=== PATIENT | female | born 1995 | race African-American/Black ===

== ENCOUNTER 2022-08-11 16:58 | Emergency (ER) | payer SELFPAY ==
--- OUTSIDE RECORDS SUMMARY | 2022-08-11 17:01 | XMS REPORT | Continuity of Care Document ---
:1995 Author Organization [facility] t Address [address] [place] [address] [address] [place] [address] Care Team Providers Name Role Phone ARLYN HUFFMAN Primary Care Physician Unavailable Arlyn James Attending Clinician [phone] ARLYN HUFFMAN Attending Clinician Unavailable Doctor Unassigned, [place] Attending Clinician Unavailable RACHEL SMITH Attending Clinician Unavailable Racehl Regalado Attending Clinician Payers Payer Name Policy Type Policy Number Effective Date Expiration Date S ource Problems Condition Condition Condition Status Onset Resolution Last Treating Co mments Source Name Details Category Date Date Treatment Clinician Date Other Other Disease Active Univers general general 1-27 ity of counseling [place] and advice 00 Pr dical for [facility] contracept contracept julieta julieta management management Nexplanon Nexplanon Disease Active Uni vers in place in place 05 ity of 00:: [place] [facility] Nexplanon Nexplanon Disease Active Uni vers insertion insertion 1-05 ity of 00:: [place] [facility] Obesity Obesity Disease Active Univers (BMI (BMI 1-05 ity of 30-39.9) 30-39.9) 00:00: [place] [facility] Allergies, Adverse Reactions, Alerts Allergy Allergy Status Severity Reaction(s) Onset Inactive Treating Comm ents Source Name Type Date Date Clinician NO KNOWN Drug Active Univers ALLERGIE Class ity of S [facility] Social History Social Habit Start Date Stop Date Quantity Comments Source History SDOH University o f Alcohol Frequency [place] [facility] History SDOH University o f Alcohol Std [place] [facility] History SDOH University o f Alcohol Binge [place] [facility] Exposure to 2022-02-23 2022-03-05 Not sure University of SARS-CoV-2 00:00:00 08:27:00 [facility] (event) Branch Tobacco use and 2022-03-05 2022-03-05 Smokeless tobacco Un iversity of exposure 00:00:00 00:00:00 non-user [facility] Alcohol intake 2022-03-05 2022-03-05 Current drinker Unive rsity of 00:00:00 00:00:00 of alcohol [facility] (finding) [place] Alcohol Comment 2021-02-11 2021-02-11 social Universit y of 00:00:00 00:00:00 [facility] History of 2020-12-30 Cigarette Smoker Universi ty of tobacco use 00:00:00 [facility] Sex Ass[birth year] At [birth year] Universit y of 00:00:00 00:00:00 [facility] Smoking Status Start Date Stop Date Source Ex-smoker 2022-03-05 00:00:00 2022-03-05 00:00:00 Universi ty of [facility] Medications Ordered Filled Start Stop Current Ordering Indication Dosage Frequency Signature Comments Components Source Medication Medication Date Date Medication? Clinician (SIG) Name Name metroNIDAZO Yes [id number] 500mg Take 1 Univers LE 500 mg 2-07 tablet by ity o f tablet 00:00: mouth in [place] 00 the Medical morning Branch and 1 tablet in the evening. metroNIDAZO Yes [id number] 500mg Take 1 Univers LE 500 mg 2-07 tablet by ity o f tablet 00:00: mouth in [place] 00 the Medical morning Branch and 1 tablet in the evening. doxycycline 2022- No [id number] 100mg Take 1 Univers hyclate 100 1-31 02-08 tablet by it y of mg tablet 00:00: 05:59 mouth in [place] 00 :00 the Medical morning Branch and 1 tablet in the evening. Do all this for 7 days. doxycycline 2022- No [id number] 100mg Take 1 Univers hyclate 100 03-09 tablet by it y of mg tablet 00:00: 05:59 mouth in [place] 00 :00 the Medical morning Branch and 1 tablet in the evening. Do all this for 7 days. doxycycline 2022- No [id number] 100mg Take 1 Univers hyclate 100 03-09 tablet by it y of mg tablet 00:00: 05:59 mouth in [place] 00 :00 the [facility] and 1 tablet in the evening. Do all this for 7 days. doxycycline 2022- No [id number] 100mg Take 1 Univers hyclate 100 03-09 tablet by it y of mg tablet 00:00: 05:59 mouth in [place] 00 :00 the [facility] Branch and 1 tablet in the evening. Do all this for 7 days. No known No No known Unive rs medications 03-05 medication it y of 08:38: s [address] No known No No known Unive rs medications 03-05 medication it y of 08:38: [address] No known No No known Unive rs medications 03-05 medication it y of 08:38: [address] No known No No known Unive rs medications 03-05 medication it y of 08:38: [address] etonogestre 2021- No [id number] 68mg Univers L 02-25 ity of (NEXPLANON) 17:00: 15:57 [place] implant 68 00 :00 [facility] etonogestre 2021- No [id number] 68mg 68 mg, Univers L 02-25 Subdermal, ity of (NEXPLANON) 17:00: 15:57 ONCE NOW, [place] implant 68 00 :00 1 dose, On Med ical mg [facility] Branch 02/25/21 at 1100, Routine
Use approved by: [employer] No known No Univers medications 02-25 ity of 09:48: [address] No known No No known Unive rs medications 02-25 medication it y of 09:48: s [address] Vital Signs Vital Name Observation Time Observation Value Comments Source Systolic blood 2022-03-05 14:28:00 115 mm[Hg] Univer sity of pressure [facility] Diastolic blood 2022-03-05 14:28:00 67 mm[Hg] Unive rsity of pressure [facility] Heart rate 2022-03-05 14:28:00 91 /min Universi ty of [facility] Body temperature 2022-03-05 14:28:00 [facility].78 [facility] Res[facility] rate 2022-03-05 14:28:00 18 /min Univ ersity of [facility] Body height 2022-03-05 14:28:00 160 cm Universi ty of [facility] Body weight 2022-03-05 14:28:00 97.796 kg Universi ty of [facility] BMI 2022-03-05 14:28:00 38.19 kg/m2 Universi ty of [facility] Systolic blood 2021-02-25 15:31:00 128 mm[Hg] Univer sity of pressure [facility] Diastolic blood 2021-02-25 15:31:00 83 mm[Hg] Unive rsity of pressure [facility] Heart rate 2021-02-25 15:31:00 93 /min Universi ty of [facility] Body temperature 2021-02-25 15:31:00 35.83 [facility] Respiratory rate 2021-02-25 15:31:00 16 /min [facility] Body height 2021-02-25 15:31:00 160 cm Universi ty of [facility] Body weight 2021-02-25 15:31:00 88.168 kg Universi ty of [facility] BMI 2021-02-25 15:31:00 34.43 kg/m2 Universi ty [facility] Procedures Procedure Date / Time Performing Clinician Source Performed ASSIGNMENT OF BENEFITS 2022-03-05 13:53:48 Doctor Unassigned, No [facility] POCT TEST 2021-02-25 15:48:00 [facility] CONSENT FOR 2021-02-25 06:01:00 Doctor Unassigned, No [facility] Encounters Start End Encounter Admission Attending Care Care Encounter Source Date/Time Date/Time Type Type Clinicians Facility Department ID 2022-07-28 2022-07-28 Outpatient [facility] [id number] Fab 11:03:37 11:03:37 [id number] F Johnathan 2022-03-16 2022-03-16 [id number] Univers 00:00:00 00:00:00 Arlyn C [employer] [id number] ity of [facility] [id number] [place] as MATERNAL [id number] [facility] & CHILD [address] [place] [address] 2022-03-09 2022-03-09 [facility] [id number] [facility] 00:00:00 00:00:00 Arlyn C [employer] [id number] ity of [facility] [id number] [place] MATERNAL [id number] [facility] & CHILD [address] [place] [address] 2022-03-05 2022-03-05 [facility] [id number] Univers 08:15:00 10:32:29 ARLYN langley [facility] 2022-03-05 2022-03-05 [facility] [id number] Univers 08:15:00 08:30:00 Visit Arlyn Garber [employer] [id number] ity of [facility] [id number] [place] as MATERNAL [phone] [facility] & CHILD [address] [place] [address] 2022-03-05 2022-03-05 Orders Doctor TALBERT [id number] Univers 00:00:00 00:00:00 Only Unassigned, ABDOULAYE [id number] ity of [place] [facility] [id number] [place] as [phone] [address] 2022-02-11 2022-02-11 Outpatient Jannie SMITH [facility] [id number] Univers 10:30:00 10:30:00 RACHEL brantley o korin [facility] 2022-02-11 2022-02-11 Outpatient R BIBDALLIN [facility] [id number] Univers 10:30:00 10:30:00 ARLYN lakhani [facility] 2021-02-25 2021-02-25 Office Kodak [facility] [id number] Univers 15:00:00 15:30:00 Visit Rochellepepper R [employer] [id number] ity of [id number] [place] as MATERNAL [phone] [facility] & CHILD [address] [place] [address] 2021-02-25 2021-02-25 Outpatient R KODAK [facility] [id number] Univers 15:00:00 15:00:00 RACHEL lakhani [facility] 2021-02-25 2021-02-25 Outpatient R KODAK [facility] [id number] Univers 15:00:00 15:00:00 [facility] 2021-02-25 2021-02-25 Outpatient R KODAK [facility] [id number] Univers 15:00:00 15:00:00 [facility] l[facility] 2021-02-25 2021-02-25 Letter [employer] [facility] [id number] Univers 00:00:00 00:00:00 (Out) Rachel R [employer] [id number] ity of [id number] [place] as MATERNAL [id number] [facility] & [address] 2021-02-25 2021-02-25 Orders Doctor GALI [id number] Univers 00:00:00 00:00:00 Only Unassigned, ABDOULAYE [id number] ity of [place] [facility] [id number] [place] as [phone] [address] 2021-02-11 2021-02-11 Office [employer] [facility] [id number] Univers 09:00:00 10:20:05 Visit Anoopa R [employer] [id number] ity of [facility] [id number] [place] as MATERNAL [phone] Med ical & CHILD [address] [place] [address] 2021-02-11 2021-02-11 Outpatient Jannie SMITH [facility] [id number] Univers 09:00:00 10:20:05 RACHEL langley [facility] Results Test Description Test Time Test Comments Results Result Comments Source POCT TEST 2021-02-25 15:48:00 Test Item Value Reference Range Interpretation Comme nts POCT PREG (test code = 1605) Negative On board controls acceptable with C Line (test code = 3574) Yes POCT PREG LOT # (test code = 3575) POCT PREG TEST DATE (test code = 3576) [facility]
--- NOTE | 2022-08-11 17:20 | EDPHYS ---
Physician Documentation [facility] Name: Maxwell Villegas Age: 27 yrs Sex: Female : 1995 Arrival Date: 08/11/2022 Time: 16:58 Bed IW5 Private MD: ED Physician Sean Rivas HPI: 08/11 17:21 This 27 yrs old Black Female presents to ER via Ambulatory with complaints of Anxiety, sb4 Palpitations. 17:21 Onset: The symptoms/episode began/occurred 2 day(s) ago. Associated signs and symptoms: sb4 Pertinent negatives: chest pain, fever, headache, wheezing. The patient has not experienced similar symptoms in the past. The patient has not recently seen a physician. 27 year old female with no past medical history who presented to the ED with complaints of 2 days of panic attacks. She states that she does not have a formal diagnosis of depression or anxiety and has never had panic attacks in the past. She states that her job is stressful and believes that is the cause of her panic. She has noticed that her heart rate rises to the 150s during her attacks. Historical: - Allergies: 17:06 No Known Allergies; ld1 - PMHx: 17:06 None; ld1 - PSHx: 17:06 None; ld1 - Immunization history:: Adult Immunizations up to date. - Social history:: Smoking status: Patient denies any tobacco usage or history of. Patient/guardian denies using alcohol. ROS: 17:21 Constitutional: Negative for fever, chills, and weight loss, Eyes: Negative for injury, sb4 pain, redness, and discharge, ENT: Negative for injury, pain, and discharge, Respiratory: Negative for shortness of breath, cough, wheezing, and pleuritic chest pain, Abdomen/GI: Negative for abdominal pain, nausea, vomiting, diarrhea, and constipation, MS/Extremity: Negative for injury and deformity, Skin: Negative for injury, rash, and discoloration, Neuro: Negative for headache, weakness, numbness, tingling, and seizure. 17:21 Cardiovascular: Positive for palpitations, Negative for chest pain. 17:21 Psych: Positive for anxiety, Negative for depression, drug dependence, alcohol dependence, auditory hallucinations, visual hallucinations, homicidal ideation, insomnia, suicide gesture, suicidal ideation. Exam: 17:21 Constitutional: This is a well developed, well nourished patient who is awake, alert, sb4 and in no acute distress. Head/Face: Normocephalic, atraumatic. Eyes: Extra-ocular motions intact. Periorbital areas with no swelling, redness, or edema. ENT: Mucous membranes moist. Cardiovascular: Regular rate and rhythm with a normal S1 and S2. Respiratory: Lungs have equal breath sounds bilaterally, clear to auscultation and percussion. No rales, rhonchi or wheezes noted. No increased work of breathing, no retractions or nasal flaring. Abdomen/GI: Soft, non-tender, no distension. Back: No spinal tenderness. No costovertebral tenderness. Full range of motion. Skin: Warm, dry with normal turgor. Normal color with no rashes, no lesions, and no evidence of cellulitis. MS/ Extremity: Pulses equal, no cyanosis. Neurovascular intact. Full, normal range of motion. Neuro: Awake and alert, GCS 15, oriented to person, place, time, and situation. Cranial nerves II-XII grossly intact. Motor strength 5/5 in all extremities. Sensory grossly intact. Cerebellar exam normal. Normal gait. Psych: Awake, alert, with orientation to person, place and time. Behavior, mood, and affect are within normal limits. Vital Signs: 17:05 BP 137 / 87; Pulse 92; Resp 18; Temp 98.6(O); Pulse Ox 100% on R/A; Weight 85.73 kg; ld1 Height 5 ft. 4 in. ; Pain 0/10; 17:05 Body Mass Index 32.44 (85.73 kg, 162.56 cm) ld1 17:05 Pain Scale: Adult ld1 MDM: 17:04 Patient medically screened. sb4 17:21 Differential diagnosis: depression, anxiety, panic attacks, hyperthyroidism, sb4 drug/alcohol intoxication, schiophrenia. Data reviewed: vital signs, nurses notes, EKG, and as a result, I will discharge patient. Test considered but Not performed: Labs: discussed with patient obtaining labs to rule out an underlying cause- electrolyte abnormality, thyroid disorder, etc. but she declined at this time. Counseling: I had a detailed discussion with the patient and/or guardian regarding: the historical points, exam findings, and any diagnostic results supporting the discharge/admit diagnosis, the need for outpatient follow up, a psychiatrist. Special discussion: Based on the history and exam findings, there is no indication for further emergent testing or inpatient evaluation. I discussed with the patient/guardian the need to see the psychiatrist for further evaluation of the symptoms. 08/11 17:13 Order name: EKG Strip; Complete Time: 17:13 ld1 EC:27 Rate is 84 beats/min. Rhythm is regular, Normal Sinus Rhythm. QRS Dexter is Normal. DC sb4 interval is normal at 152 msec. QRS interval is normal at 76 msec. QT interval is normal at 324 msec. No Q waves. T waves are Normal. Clinical impression: Normal ECG. Interpreted by me. Reviewed by me. Administered Medications: No medications were administered Disposition: 18:51 Co-signature as Attending Physician, Sean Rivas MD I reviewed the patient's care rn provided by the Advanced Practice Provider and agree with the diagnosis and treatment plan. Disposition Summary: 08/11/22 17:19 Discharge Ordered Location: Home sb4 Problem: new sb4 Symptoms: are unchanged sb4 Condition: Stable sb4 Diagnosis - panic attacks sb4 Followup: sb4 - With: Saman Barlow MD - When: 1 week - Reason: Recheck today's complaints, Re-evaluation by your physician Discharge Instructions: - Discharge Summary Sheet sb4 - Panic Attack, [id number] sb4 Forms: - Work release form ld1 - Medication Reconciliation Form sb4 - Thank You Letter sb4 - Antibiotic Education sb4 - Prescription Opioid Use sb4 - [email or web address] sb4 Prescriptions: - Hydroxyzine HCl 25 mg Oral Tablet - take 1 tablet by ORAL route every 6 hours As needed; 12 tablet; Refills: 0, sb4 Product Selection Permitted Signatures: Sean Rivas MD MD rn Sims, Lauren, RN RN ld1 Alissa Aguirre PA-C PA-C sb4
--- NOTE | 2022-08-11 17:20 | ER ---
Nurse's Notes [facility] Name: Maxwell Villegas Age: 27 yrs Sex: Female : 1995 Arrival Date: 08/11/2022 Time: 16:58 Bed IW5 Private MD: Diagnosis: panic attacks Presentation: 08/11 17:06 Chief complaint: Patient states: Rapid heart rate, dizziness, drowsiness. Recent panic ld1 attacks - heart rate gets up to 150. Coronavirus screen: At this time, the client does not indicate any symptoms associated with coronavirus-19. Ebola Screen: No symptoms or risks identified at this time. Initial Sepsis Screen: Does the patient meet any 2 criteria? No. Patient's initial sepsis screen is negative. Does the patient have a suspected source of infection? No. Patient's initial sepsis screen is negative. Risk Assessment: Do you want to hurt yourself or someone else? Patient reports no desire to harm self or others. Onset of symptoms was August 11, 2022. 17:06 Method Of Arrival: Ambulatory ld1 17:06 Acuity: BOLIVAR 3 ld1 Triage Assessment: 17:06 General: Appears in no apparent distress. comfortable, Behavior is calm, cooperative, ld1 appropriate for age. Pain: Denies pain. EENT: No signs and/or symptoms were reported regarding the EENT system. Neuro: Level of Consciousness is awake, alert, obeys commands, Oriented to person, place, time, situation. Cardiovascular: Denies chest pain, Capillary refill < 3 seconds Patient's skin is warm and dry. Respiratory: Airway is patent Respiratory effort is even, unlabored. GI: Abdomen is round non-distended. : No signs and/or symptoms were reported regarding the genitourinary system. Derm: No signs and/or symptoms reported regarding the dermatologic system. Musculoskeletal: No signs and/or symptoms reported regarding the musculoskeletal system. Historical: - Allergies: 17:06 No Known Allergies; ld1 - PMHx: 17:06 None; ld1 - PSHx: 17:06 None; ld1 - Immunization history:: Adult Immunizations up to date. - Social history:: Smoking status: Patient denies any tobacco usage or history of. Patient/guardian denies using alcohol. Vital Signs: 17:05 BP 137 / 87; Pulse 92; Resp 18; Temp 98.6(O); Pulse Ox 100% on R/A; Weight 85.73 kg; ld1 Height 5 ft. 4 in. ; Pain 0/10; 17:05 Body Mass Index 32.44 (85.73 kg, 162.56 cm) ld1 17:05 Pain Scale: Adult ld1 ED Course: 17:01 Patient arrived in ED. rg4 17:04 Alissa Aguirre [facility]-C [facility] sb4 17:04 Sean Rivas MD is Attending Physician. sb4 17:06 Arm band placed on right wrist. ld1 17:07 Triage completed. ld1 17:18 Saman Barlow MD is Referral Physician. sb4 Administered Medications: No medications were administered Outcome: 17:19 Discharge ordered by . sb4 17:28 Patient left the ED. ld1 Signatures: Jennifer Mast rg4 Lizeth Epstein RN RN ld1 Alissa Aguirre PA-C PA-C sb4
[2022-08-11 18:11] VITALS: BP 137/87; TEMP 98.6; O2SAT 100
--- NOTE | 2022-08-12 12:14 | EKG ---
Test Date: 2022-08-11 Test Time: 17:11:23 Mechanical Estimator: Juhi NICOLAS MEASUREMENT RESULTS: Intervals: Rate: 84 VA: 152 QRSD: 76 QT: 324 QTc: 382 [place]: P: 60 VA: 152 QRS: 75 T: 28 INTERPRETIVE STATEMENTS: Normal sinus rhythm with sinus arrhythmia Normal ECG No previous ECG available for comparison Electronically Signed On 08-12-22 12:13:10 CDT by Abisai Rose
== END 2022-08-11 17:28 | disposition home or self-care (01) ==
LOC: ER 16:58
DX: F41.0 Panic disorder [episodic paroxysmal anxiety] (principal)
CPT/HCPCS: 93005; 99281

== ENCOUNTER 2023-02-04 12:50 | Inpatient (IN) | payer SELFPAY ==
--- OUTSIDE RECORDS SUMMARY | 2023-02-04 12:52 | XMS REPORT | Continuity of Care Document ---
Author Name Unknown Address [address] [place] [address] [facility] thconnect Address [address] [place] [address] Care Team Providers Care Hand Alterations Tailor Name Role Phone ARLYN HUFFMAN Primary Care Physician Unav ailANI Veloz Attending Clinician Unavailabl e Luis Arlyn NGUYEN Attending Clinician + ARLYN HUFFMAN Attending Clinician Unavail able Doctor Unassigned, [place] Attending Clinician U RACHEL Stanton Attending Clinician UnavailRachel Carter Attending Clinician Payers Payer Name Policy Type Policy Number Effective Date Expirati on Date Source Problems Condition Name Condition Details Condition Category Status Onset Date Resolution Date Last Treatment Date Treating Clinician Comments Source Other general counseling and advice for contracept julieta management Other general counseling and advice for contracept julieta management Disease Active 03-05 00:00: 00 [facility] Nexplanon in place Nexplanon in place Disease Active 02-11 00:00: 00 [facility] Nexplanon insertion Nexplanon insertion Disease Active 02-11 00:00: 00 [facility] Obesity (BMI 30-39.9) Obesity (BMI 30-39.9) Disease Active 02-11 00:00: 00 [facility] Allergies, Adverse Reactions, Alerts Allergy Name Allergy Type Status Severity Reaction(s) Onset Date Inactive Date Treating Clinician Comments Source NO KNOWN ALLERGIE S Drug Class Active [facility] Social History Social Habit Start Date Stop Date Quantity Comments Source History SDOH Alcohol Frequency [facility] History SDOH Alcohol Std Drinks [facility] History SDOH Alcohol Binge [facility] Exposure to SARS-CoV-2 (event) 2022-02-23 00:00:00 2022-03-05 08:27:00 Not sure [facility] Tobacco use and exposure 2022-03-05 00:00:00 2022-03-05 00:00:00 Smokeless tobacco non-user [facility] Alcohol intake 2022-03-05 00:00:00 2022-03-05 00:00:00 Current drinker of alcohol (finding) [facility] Alcohol Comment 2021-02-11 00:00:00 2021-02-11 00:00:00 social [facility] History of tobacco use 2020-12-30 00:00:00 Cigarette Smoker [facility] Sex Ass[birth year] At 1995 00:00:00 1995 00:00:00 [facility] Smoking Status Start Date Stop Date Source Ex-smoker 2022-03-05 00:00:00 2022-03-05 [facility]00[facility] Ordered Medication Name Filled Medication Name Start Date Stop Date Current Medication? Ordering Clinician Indication Dosage Frequency Signature (SIG) Comments Components Source metroNIDAZO LE 500 mg tablet 03-16 00:00: 00 Yes [id number] 500mg Take 1 tablet by mouth in the morning and 1 tablet in the evening. [facility] metroNIDAZO LE 500 mg tablet 03-16 00:00: 00 Yes [id number] 500mg Take 1 tablet by mouth in the morning and 1 tablet in the evening. [facility] doxycycline hyclate 100 mg tablet 03-09 00:00: 03-17 05:59 :00 No [id number] 100mg Take 1 tablet by mouth in the morning and 1 tablet in the evening. Do all this for 7 days. [facility] doxycycline hyclate 100 mg tablet 03-09 00:00: 00 03-17 05:59 :00 No [id number] 100mg Take 1 tablet by mouth in the morning and 1 tablet in the evening. Do all this for 7 days. [facility] doxycycline hyclate 100 mg tablet 03-09 00:00: 00 03-17 05:59 :00 No [id number] 100mg Take 1 tablet by mouth in the morning and 1 tablet in the evening. Do all this for 7 days. [facility] doxycycline hyclate 100 mg tablet 03-09 00:00: 00 03-17 05:59 :00 No [id number] 100mg Take 1 tablet by mouth in the morning and 1 tablet in the evening. Do all this for 7 days. [facility] No known medications 03-05 08:38: 58 No No known medication [facility] No known medications 03-05 08:38: 58 No No known medication [facility] No known medications 03-05 08:38: 58 No No known medication [facility] No known medications 03-05 08:38: 58 No No known medication [facility] etonogestre L (NEXPLANON) implant 68 mg 02-25 17:00: 00 02-25 15:57 :00 No [id number] 68mg [facility] etonogestre L (NEXPLANON) implant 68 mg 02-25 17:00: 00 02-25 15:57 :00 No [id number] 68mg 68 mg, Subdermal, ONCE NOW, 1 dose, On Tue02/25/21 at 1100, Routine
Use approved by: PRODUCT MARKETING ANALYST [facility] No known medications 02-25 09:48: 08 No Univers [facility] No known medications 02-25 09:48: 08 No No known medication s [facility] Vital Signs Vital Name Observation Time Observation Value Comments Servando patel Systolic blood pressure 2022-03-05 14:28:00 115 mm[Hg] [facility] Diastolic blood pressure 2022-03-05 14:28:00 67 mm[Hg] [facility] Heart rate 2022-03-05 14:28:00 91 /min [facility] Body temperature 2022-03-05 14:28:00 35.78 Vilma [facility] Respiratory rate 2022-03-05 14:28:00 18 /min [facility] Body height 2022-03-05 14:28:00 160 cm [facility] Body weight 2022-03-05 14:28:00 97.796 kg [facility] BMI 2022-03-05 14:28:00 38.19 kg/m2 [facility] Systolic blood pressure 2021-02-25 15:31:00 128 mm[Hg] [facility] Diastolic blood pressure 2021-02-25 15:31:00 83 mm[Hg] [facility] Heart rate 2021-02-25 15:31:00 93 /min [facility] Body temperature 2021-02-25 15:31:00 35.83 Vilma [facility] Respiratory rate 2021-02-25 15:31:00 16 /min [facility] Body height 2021-02-25 15:31:00 160 cm [facility] Body weight 2021-02-25 15:31:00 88.168 kg [facility] BMI 2021-02-25 15:31:00 34.43 kg/m2 [facility] Procedures Procedure Date / Time Performed Performing Clinician Source ASSIGNMENT OF BENEFITS 2022-03-05 13:53:48 Docto r Unassigned, [place] [facility] POCT TEST 2021-02-25 15:48:00 Jaden Smith [facility] CONSENT FOR CONTRACEPTION 2021-02-25 06:01:00 Doctor Unassigned, [place] [facility] Encounters Start Date/Time End Date/Time Encounter Type Admission Type Attending Clinicians Care Facility Care Department Encounter ID Source 2023-01-15 16:53:00 2023-01-15 22:40:00 Emergency E ANI XIE [facility] [id number] [facility] 2022-07-28 11:03:37 2022-07-28 11:03:37 Outpatient [facility] [id number] Fab Mann 2022-03-16 00:00:00 2022-03-16 00:00:00 Telephone Arlyn Huffman [facility] PRODUCT MARKETING ANALYST [facility] 1.840.114 [id number] [id number] [id number] [facility] 2022-03-09 00:00:00 2022-03-09 00:00:00 Telephone Arlyn Huffman [facility] PRODUCT MARKETING ANALYST [facility] 1.840.114 [id number] [id number] [id number] [facility] 2022-03-05 08:15:00 2022-03-05 10:32:29 Outpatient R ARLYN HUFFMAN [facility] [id number] [facility] 2022-03-05 08:15:00 2022-03-05 08:30:00 Office Visit Arlyn Huffman [facility] PRODUCT MARKETING ANALYST [facility] 1.840.114 [id number] [id number] [id number] [facility] 2022-03-05 00:00:00 2022-03-05 00:00:00 Orders Only Doctor Unassigned, [place] [facility] 1.840.114 [id number] [id number] [id number] [facility] 2022-02-11 10:30:00 2022-02-11 10:30:00 Outpatient R RACHEL SMITH [facility] [id number] [facility] 2022-02-11 10:30:00 2022-02-11 10:30:00 Outpatient R ARLYN HUFFMAN [facility] [id number] [facility] 2021-02-25 15:00:00 2021-02-25 15:30:00 Office Visit Rachel Smith [facility] PRODUCT MARKETING ANALYST [facility] 1.840.114 [id number] [id number] [id number] [facility] 2021-02-25 15:00:00 2021-02-25 15:00:00 Outpatient R RACHEL SMITH [facility] [id number] [facility] 2021-02-25 15:00:00 2021-02-25 15:00:00 Outpatient R RACHEL SMITH [facility] [id number] [facility] 2021-02-25 15:00:00 2021-02-25 15:00:00 Outpatient R RACHEL SMITH [facility] [id number] [facility] 2021-02-25 00:00:00 2021-02-25 00:00:00 Letter (Out) Rachel Smith [facility] PRODUCT MARKETING ANALYST [facility] 1..840.114 350.1.13.10 [id number] [id number] [facility] 2021-02-25 00:00:00 2021-02-25 00:00:00 Orders Only Doctor Unassigned, [place] [facility] 1..840.114 350.1.13.10 [id number] [id number] [facility] 2021-02-11 09:00:00 2021-02-11 10:20:05 Office Visit Rachel Smith [facility] PRODUCT MARKETING ANALYST [facility] [id number] [id number] [id number] [id number] [facility] 2021-02-11 09:00:00 2021-02-11 10:20:05 Outpatient R RACHEL SMITH [facility] [id number] [facility] Results Test Description Test Time Test Comments Results Result Co mments Source [facility]
[2023-02-04] MEDS ORDERED: ONDANSETRON 4 MG/2 ML VIAL ONE ×2 (13:27→20:43)
[2023-02-04] MEDS ORDERED: NA CHLORIDE 0.9% 2,000 ML ONE (13:27)
[2023-02-04] MEDS ORDERED: FAMOTIDINE 20 MG/2 ML VIAL IV ONE (13:27)
[2023-02-04 13:59] LABS: Absolute Lymphocytes (CBC) 2.2 K/uL (0.7-4.9); Hematocrit 27.3 % (36.0-45.0); Lymphocytes % 9.6 % (15.3-44.8); MCV 77.4 fL (80-100); MPV 6.2 fL (7.6-11.3); Platelets 159 thou/uL (152-406); RBC Red Blood Cell Count 3.53 M/uL (3.86-4.86)
[2023-02-04 14:23] LABS: Albumin 1.1 g/dL (3.4-5.0); Bilirubin Total 0.4 mg/dL (0.2-1.0); Protein, Total 6.1 g/dL (6.4-8.2)
[2023-02-04 14:24] LABS: Potassium 2.5 mEq/L (3.5-5.1)
[2023-02-04 15:34] LABS: Blood Morphology Comment NOTED (NOT SEEN); Platelet Estimate ADEQ; Polychromasia 1+; Stomatocytes 1+; White Blood Cell Scan OK (OK)
[2023-02-04] MEDS ORDERED: POTASSIUM 25 MEQ EFFERV TAB ONE (15:40)
[2023-02-04] MEDS ORDERED: VANCOMYCIN 1 GM/VIAL ONE (15:40)
[2023-02-04] MEDS ORDERED: CEFTRIAXONE 1000 MG/VIAL ONE (15:40)
[2023-02-04] MEDS ORDERED: KCL 20 MEQ/100 mL IVPB 100 ML IV ONE (15:41)
[2023-02-04] MEDS ORDERED: NA CHLORIDE 0.9% 250 ML ONE (15:41)
[2023-02-04] MEDS ORDERED: NA CHLORIDE 0.9% 1,000 ML ONE (15:41)
--- NOTE | 2023-02-04 17:53 | RAD REPORT ---
EXAM DESCRIPTION: CT - Abdomen Pelvis Wo Contrast - 02/04/2023 5:14 pm CLINICAL HISTORY: GLUTEAL ABSCESS/ RAYMUNDO-RECTAL; ABD PAIN COMPARISON: No comparisons TECHNIQUE: Thin cut axial CT imaging of the abdomen and pelvis was performed without IV contrast. Mu ltiplanar reformats were generated and reviewed. All CT scans are performed using dose optimization technique as appropriate and may include automated exposure control or mA/KV adjustment according to patient size. FINDINGS: No suspicious findings in the lung bases. The liver, spleen, and pancreas show no suspicious findings. Gallbladder and biliary tree are also wi thout suspicious finding. Symmetric renal contour, without suspicious parenchymal findings within limits of noncontrast techniq ue. No evidence of radiopaque calculi or hydroureteronephrosis. No dilated bowel loops. Diffuse wall thickening throughout the colon sparing, with mild adjacent fat stranding. No free air, free fluid or inflammatory stranding. No hernia, mass or bulky lymphadenopath y. The urinary bladder is without significant finding. No suspicious bony findings. Asymmetric soft tissue swelling in the right perianal region extending a long the right aspect of the right gluteal bulb, with locules of gas. No appreciable expansile fluid collections allowing for limits of absence of intravenous contrast benefit. IMPRESSION: Diffuse colonic wall thickening, sparing the rectum, suggestive of infectious or inflamm atory colitis. Asymmetric perianal soft tissue swelling on the right with extension of sequelae of inflammation with locules of soft tissue gas along the right gluteal region subcutaneous tissues, right concern for pe rianal fistula. No appreciable fluid collections within limits of noncontrast evaluation.
[2023-02-04 18:45] LABS: Specific Gravity 1.005 (1.005-1.030)
[2023-02-04 18:54] LABS: Specific Gravity 1.005 (1.005-1.030); Urine Bacteria <20 /HPF (<20); Urine Bilirubin NEGATIVE (Negative); Urine Blood 1+ (Negative); Urine Clarity Extremely Turbid (Clear); Urine Color Light-Yellow (Yellow); Urine Crystals Unidentified Few /HPF (None Seen); Urine Glucose NEGATIVE (Negative); Urine Mucus Slight /HPF (None Seen); Urine Protein NEGATIVE (Negative); Urine Urobilinogen Normal (Normal); Urine WBC Clump Rare /HPF (None Seen)
--- NOTE | 2023-02-04 20:00 | ER ---
[facility] Name: Maxwell Villegas Age: 27 yrs Sex: Female : 1995 Arrival Date: 02/04/2023 Time: 12:50 Bed 8 Private MD: Diagnosis: Rectal abscess;Anorectal abscess Presentation: 02/04 12:54 Chief complaint: Nausea with some vomiting and diarrhea x 2 weeks, painful bedsore on hb right buttock x 3 days. Coronavirus screen: Client presents with at least one sign or symptom that may indicate coronavirus-19. Standard/surgical mask placed on the client. Provider contacted for isolation considerations. Ebola Screen: No symptoms or risks identified at this time. Initial Sepsis Screen: Does the patient meet any 2 criteria? HR > 90 bpm. No. Patient's initial sepsis screen is negative. Does the patient have a suspected source of infection? No. Patient's initial sepsis screen is negative. Risk Assessment: Do you want to hurt yourself or someone else? Patient reports no desire to harm self or others. Onset of symptoms was January 11, 2023. 12:54 Method Of Arrival: Wheelchair hb 12:54 Acuity: BOLIVAR 2 hb Triage Assessment: 13:00 General: Appears uncomfortable, obese, unkempt, Behavior is cooperative, appropriate bp for age, anxious. Pain: Complains of pain in buttocks. GI: Reports RECTAL PAIN. Historical: - Allergies: 12:56 No Known Allergies; hb - Home Meds: 12:56 None [Active]; hb - PMHx: 12:56 None; hb - PSHx: 12:56 Hand - Left; hb - Immunization history:: Client reports having NOT received the Covid vaccine. Flu vaccine is not up to date. - Social history:: Smoking status: Patient denies any tobacco usage or history of. Screenin:00 [facility] ED Fall Risk Assessment (Adult) History of falling in the last 3 months, bp including since admission No falls in past 3 months (0 pts). Abuse screen: Denies threats or abuse. Denies injuries from another. Nutritional screening: No deficits noted. Tuberculosis screening: No symptoms or risk factors identified. Assessment: 13:00 General: SEE TRIAGE NOTE. bp 15:00 Reassessment: No changes from previously documented assessment. Patient is alert, bp oriented x 3, equal unlabored respirations, skin warm/dry/pink. 17:00 Reassessment: No changes from previously documented assessment. Patient is alert, bp oriented x 3, equal unlabored respirations, skin warm/dry/pink. 18:38 Reassessment: PT INCONTINENT TO STOOL AND URINE IN BED. LMP NOTIFIED AND LINENS CHANGED.bp 19:30 Reassessment: DR VALDOVINOS AT B/S. bp 20:39 Reassessment: PT BECKY WITH OR. bp 20:39 GI: Abdomen is non-distended. bp Vital Signs: 12:54 BP 140 / 93; Pulse 140; Resp 16; Temp 98.5; Pulse Ox 100% on R/A; Weight 69.4 kg; hb Height 5 ft. 3 in. ; Pain 6/10; 18:38 BP 113 / 69; Pulse 118; Resp 20; Pulse Ox 99% ; bp 12:54 Body Mass Index 27.10 (69.40 kg, 160.02 cm) hb 12:54 Pain Scale: Adult hb ED Course: 12:51 Patient arrived in ED. rg4 12:51 Jesus Hurley MD is Attending Physician. kdr 12:56 Triage completed. hb 12:57 Arm band placed on. hb 13:17 Poli Lomas, [place] is Primary Nurse. bp 13:51 Initial lab(s) drawn, by me, sent to lab. Inserted saline lock: 22 gauge in right em1 wrist, using aseptic technique. Blood collected. 14:00 Patient has correct armband on for positive identification. Provided Education on: N/A. bp 14:23 Notified ED physician of a critical lab result(s). Notified Dr Hurley that potassium me1 level is 2.5. 15:32 Inserted saline lock: 20 gauge in right antecubital area, using aseptic technique. bp 19:28 Urine Culture Sent. jw7 19:29 Urine Culture Sent. jw7 19:59 Reed Valdovinos MD is Hospitalizing Provider. kdr 20:39 No provider procedures requiring assistance completed. Patient admitted, IV remains in bp place. Administered Medications: 14:01 Drug: Ondansetron IVP 4 mg IVP once; over 2 minutes Route: IVP; Site: right hand; bp 14:01 Drug: NS 0.9% IV 1000 ml IV at 1 bolus Per protocol; 1000 mL bolus Route: IV; Rate: 1 bp bolus; Site: right hand; 14:02 Drug: NS 0.9% IV 1000 ml IV at 125 ml/hr continuous Route: IV; Rate: 125 ml/hr; Site: bp right hand; 14:02 Drug: Famotidine IVP 20 mg IVP once; dilute with 10 mL 0.9% NaCl; give over 2 minutes bp Route: IVP; Site: right hand; 15:30 Drug: Potassium PO Effervescent Tablet 50 mEq PO once; dissolve in 4 ounces of water or bp juice Route: PO; 20:41 Follow up: Response: No adverse reaction bp 15:30 Drug: Potassium Chloride IV 10 mEq IV at calculated rate once; administer over 1-2 bp hours Route: IV; Rate: calculated rate; Site: right antecubital; 20:41 Follow up: IV Status: Completed infusion; IV Intake: 100ml bp 15:30 Drug: NS 0.9% IV 1000 ml IV at 1 bolus Per protocol; 1000 mL bolus Route: IV; Rate: 1 bp bolus; Site: right antecubital; 20:40 Follow up: IV Status: Completed infusion; IV Intake: 1000ml bp 15:30 Drug: Rocephin - Rocephin (cefTRIAXone) IVPB 1 grams IVPB once over 30 mins; (mix in 50 bp mL NS) Route: IVPB; Infused Over: 30 mins; Site: right antecubital; 20:40 Follow up: IV Status: Completed infusion; IV Intake: 100ml bp 15:30 Drug: vancoMYCIN IVPB 1 grams IVPB once over 2 hrs Route: IVPB; Infused Over: 2 hrs; bp Site: right antecubital; 20:40 Follow up: IV Status: Completed infusion; IV Intake: 250ml bp Medication: 20:39 VIS not applicable for this client. bp Intake: 20:40 IV: 250ml; Total: 250ml. bp 20:40 IV: 100ml; Total: 350ml. bp 20:40 IV: 1000ml; Total: 1350ml. bp 20:41 IV: 100ml; Total: 1450ml. bp Outcome: 20:00 Decision to Hospitalize by Provider. kdr 20:40 Admitted to OR accompanied by nurse, via stretcher, bp 20:40 Condition: stable 20:40 Instructed on the need for admit, 20:41 Patient left the ED. bp Signatures: Jesus Hurley MD MD kdr Micheal Luke em1 Tori Rapp, RN RN Jennifer Mast rg4 Poli Lomas, [place] RN bp Bárbara Crump, RN RN [facility] Linda Barron, RN RN me1 Corrections: (The following items were deleted from the chart) 19:59 19:28 Test, Urine+UC.LAB.BRZ drawn and sent. [facility] EDMS 19:59 19:28 Urinalysis+U.LAB.BRZ drawn and sent. [facility] EDMS 20:00 19:28 CBC+H.LAB.BRZ drawn and sent. [facility] EDMS 20: 19:28 PROBNP+C.LAB.BRZ drawn and sent. [facility] EDMS 20: 19:28 COMPREHENSIVE METABOLIC PANEL+C.LAB.BRZ drawn and sent. [facility] EDMS 20: 19:28 LIPASE+C.LAB.BRZ drawn and sent. [facility] EDMS 20:02 19:28 LACTATE+C.LAB.BRZ drawn and sent. [facility] EDMS
--- NOTE | 2023-02-04 20:00 | EDPHYS ---
Physician Documentation [facility] Name: Maxwell Villegas Age: 27 yrs Sex: Female : 1995 Arrival Date: 02/04/2023 Time: 12:50 Bed 8 Private MD: ED Physician Jesus Hurley HPI: 02/04 19:08 This 27 yrs old Black Female presents to ER via Wheelchair with complaints of Rectal kdr Abscess, Vomiting, Urinary Problem. 19:09 The patient presents with nausea vomiting and diarrhea for 2 weeks. She states that she kdr has been feeling poorly overall but the last 3 days she has had rectal pain as well. She describes the discomfort as the "bedsore". The patient is nontoxic-appearing on initial presentation. Onset: The symptoms/episode began/occurred gradually, 2 week(s) ago. Severity of symptoms: At their worst the symptoms were mild moderate just prior to arrival, in the emergency department the symptoms are unchanged. The patient has not experienced similar symptoms in the past. The patient has not recently seen a physician. Historical: - Allergies: 12:56 No Known Allergies; hb - Home Meds: 12:56 None [Active]; hb - PMHx: 12:56 None; hb - PSHx: 12:56 Hand - Left; hb - Immunization history:: Client reports having NOT received the Covid vaccine. Flu vaccine is not up to date. - Social history:: Smoking status: Patient denies any tobacco usage or history of. ROS: 19:09 Constitutional: Negative for fever, chills, and weight loss, Eyes: Negative for injury, kdr pain, redness, and discharge, ENT: Negative for injury, pain, and discharge, Neck: Negative for injury, pain, and swelling, Cardiovascular: Negative for chest pain, palpitations, and edema, Respiratory: Negative for shortness of breath, cough, wheezing, and pleuritic chest pain, Back: Negative for injury and pain, : Negative for injury, bleeding, discharge, and swelling, MS/Extremity: Negative for injury and deformity, Skin: Negative for injury, rash, and discoloration, Neuro: Negative for headache, weakness, numbness, tingling, and seizure activity. Psych: Negative for depression, anxiety, suicide ideation, homicidal ideation, and hallucinations, Allergy/Immunology: Negative for hives, rash, and allergies, Endocrine: Negative for neck swelling, polydipsia, polyuria, polyphagia, and marked weight changes, Hematologic/Lymphatic: Negative for swollen nodes, abnormal bleeding, and unusual bruising, 19:09 Abdomen/GI: Positive for nausea, vomiting, and diarrhea, rectal pain, Negative for constipation, abdominal distension, anorexia, dysphagia, hematemesis, black/tarry stool, rectal bleeding, bowel incontinence, Exam: 19:09 Constitutional: This is a well developed, well nourished patient who is awake, alert, kdr and in no acute distress. Head/Face: Normocephalic, atraumatic. Eyes: Pupils equal round and reactive to light, extra-ocular motions intact. Lids and lashes normal. Conjunctiva and sclera are non-icteric and not injected. Cornea within normal limits. Periorbital areas with no swelling, redness, or edema. Neck: Trachea midline, no thyromegaly or masses palpated, and no cervical lymphadenopathy. Supple, full range of motion without nuchal rigidity, or vertebral point tenderness. No Meningismus. Chest/axilla: Normal chest wall appearance and motion. Nontender with no deformity. No lesions are appreciated. Cardiovascular: Regular rate and rhythm with a normal S1 and S2. No gallops, murmurs, or rubs. Normal PMI, no JVD. No pulse deficits. Respiratory: Lungs have equal breath sounds bilaterally, clear to auscultation and percussion. No rales, rhonchi or wheezes noted. No increased work of breathing, no retractions or nasal flaring. Abdomen/GI: Soft, non-tender, with normal bowel sounds. No distension or tympany. No guarding or rebound. No evidence of tenderness throughout. Back: No spinal tenderness. No costovertebral tenderness. Full range of motion. Skin: Warm, dry with normal turgor. Normal color with no rashes, no lesions, and no evidence of cellulitis. MS/ Extremity: Pulses equal, no cyanosis. Neurovascular intact. Full, normal range of motion. Neuro: Awake and alert, GCS 15, oriented to person, place, time, and situation. Cranial nerves II-XII grossly intact. Motor strength 5/5 in all extremities. Sensory grossly intact. Cerebellar exam normal. Normal gait. Psych: Awake, alert, with orientation to person, place and time. Behavior, mood, and affect are within normal limits. 19:09 Abdomen/GI: Inspection: abdomen appears normal, obese Bowel sounds: active, Palpation: soft, nontender, Rectal exam: tenderness, that is moderate, that is severe, Patient is very tender to palpation along the right gluteal fold medially., Vital Signs: 12:54 BP 140 / 93; Pulse 140; Resp 16; Temp 98.5; Pulse Ox 100% on R/A; Weight 69.4 kg; hb Height 5 ft. 3 in. ; Pain 6/10; 18:38 BP 113 / 69; Pulse 118; Resp 20; Pulse Ox 99% ; bp 12:54 Body Mass Index 27.10 (69.40 kg, 160.02 cm) hb 12:54 Pain Scale: Adult hb MDM: 19:09 Data reviewed: vital signs, nurses notes, lab test result(s), radiologic studies. ED kdr course: I presented the case to Dr. Ro for consult. He agreed to see the patient in the emergency department.. 20:00 Patient medically screened. kdr 02/04 12:54 Order name: Urine Culture [facility] 02/04 14:06 Order name: CBC with Automated Diff; Complete Time: 17:46 [facility] 02/04 14:25 Order name: Comprehensive Metabolic Panel; Complete Time: 17:46 [facility] 02/04 14:25 Order name: Lipase; Complete Time: 17:46 [facility] 02/04 15:35 Order name: CBC Smear Scan; Complete Time: 17:46 [facility] 02/04 16:11 Order name: Lactate w/ 2H reflex if indic.; Complete Time: 16:17 [facility] 02/04 16:24 Order name: NT PRO-BNP; Complete Time: 16:30 [facility] 02/04 18:45 Order name: Test, Urine [facility] 02/04 18:54 Order name: Urinalysis w/ reflexes [facility] 02/04 19:27 Order name: Urine Culture [facility] 02/04 20:07 Order name: Basic Metabolic Panel [facility] 02/04 20:07 Order name: Basic Metabolic Panel [facility] 02/04 20:07 Order name: CBC with Automated Diff [facility] 02/04 20:07 Order name: CBC with Automated Diff [facility] 02/04 20:07 Order name: Lipase [facility] 02/04 20:07 Order name: Lipase [facility] 02/04 20:07 Order name: Liver (Hepatic) Function [facility] 02/04 20:07 Order name: Liver (Hepatic) Function [facility] 02/04 20:22 Order name: Potassium [facility] 02/04 14:26 Order name: CT Abd/Pelvis - Without Contrast [facility] 02/04 17:54 Order name: CT; Complete Time: 17:56 [facility] 02/04 12:54 Order name: IV Saline Lock; Complete Time: 13:50 kdr 02/04 12:54 Order name: Labs collected and sent; Complete Time: 13:50 kdr 02/04 17:59 Order name: VS Recheck; Complete Time: 18:41 kdr Administered Medications: 14:01 Drug: Ondansetron IVP 4 mg IVP once; over 2 minutes Route: IVP; Site: right hand; bp 14:01 Drug: NS 0.9% IV 1000 ml IV at 1 bolus Per protocol; 1000 mL bolus Route: IV; Rate: 1 bp bolus; Site: right hand; 14:02 Drug: NS 0.9% IV 1000 ml IV at 125 ml/hr continuous Route: IV; Rate: 125 ml/hr; Site: bp right hand; 14:02 Drug: Famotidine IVP 20 mg IVP once; dilute with 10 mL 0.9% NaCl; give over 2 minutes bp Route: IVP; Site: right hand; 15:30 Drug: Potassium PO Effervescent Tablet 50 mEq PO once; dissolve in 4 ounces of water or bp juice Route: PO; 20:41 Follow up: Response: No adverse reaction bp 15:30 Drug: Potassium Chloride IV 10 mEq IV at calculated rate once; administer over 1-2 bp hours Route: IV; Rate: calculated rate; Site: right antecubital; 20:41 Follow up: IV Status: Completed infusion; IV Intake: 100ml bp 15:30 Drug: NS 0.9% IV 1000 ml IV at 1 bolus Per protocol; 1000 mL bolus Route: IV; Rate: 1 bp bolus; Site: right antecubital; 20:40 Follow up: IV Status: Completed infusion; IV Intake: 1000ml bp 15:30 Drug: Rocephin - Rocephin (cefTRIAXone) IVPB 1 grams IVPB once over 30 mins; (mix in 50 bp mL NS) Route: IVPB; Infused Over: 30 mins; Site: right antecubital; 20:40 Follow up: IV Status: Completed infusion; IV Intake: 100ml bp 15:30 Drug: vancoMYCIN IVPB 1 grams IVPB once over 2 hrs Route: IVPB; Infused Over: 2 hrs; bp Site: right antecubital; 20:40 Follow up: IV Status: Completed infusion; IV Intake: 250ml bp Disposition Summary: 02/04/23 20:00 Hospitalization Ordered Notes: Hospitalization Status: Inpatient Admission kdr Provider: Reed Ro Location: Telemetry/MedSurg (Inpatient) kdr Condition: Fair kdr Problem: new kdr Symptoms: have improved kdr Bed/Room Type: Standard kdr Room Assignment: 220(02/04/23 20:24) cg Diagnosis - Rectal abscess kdr - Anorectal abscess kdr Forms: - Medication Reconciliation Form kdr - SBAR form kdr - Leadership Thank You Letter kdr Signatures: Dispatcher [employer] EDMS Jesus Hurley MD MD kdr Kamilah Mast RN RN cg Tori Rapp RN RN Poli Lomas RN RN bp Corrections: (The following items were deleted from the chart) 19:59 19:09 Test, Urine+UC.LAB.BRZ ordered. EDMS EDMS 19:59 19:09 Urinalysis+U.LAB.BRZ ordered. EDMS EDMS 20:00 19:09 CBC+H.LAB.BRZ ordered. EDMS EDMS 20:01 19:09 COMPREHENSIVE METABOLIC PANEL+C.LAB.BRZ ordered. EDMS EDMS 20:01 19:09 LIPASE+C.LAB.BRZ ordered. EDMS EDMS 20:01 19:12 PROBNP+C.LAB.BRZ ordered. EDMS EDMS 20:02 19:11 LACTATE+C.LAB.BRZ ordered. EDMS EDMS 20:24 20:00 kdr cg
[2023-02-04] MEDS: Ringers Lactate 1,000 ML IV ONE ×2 (20:33→20:58)
--- NOTE | 2023-02-04 20:36 | P.HP ---
Date of Service: 02/04/23 PC: This 27-year-old female presented to the emergency room with severe perirectal pain for diagnosis and treatment HPC: Patient has apparently been unwell since just after Thanksgiving. Has not felt good and has been in bed quite a lot over the last few weeks. She has has been having some diarrhea. Started noticing some drainage that was consistent with dishwater and with increasing pain and nausea she presented to the emergency room. PSHx: No prior histories PMHx: Denies any hypertension, diabetes, or thyroid issues Social Hx: No known allergies Sys R: No cough, wheeze, or shortness of breath. Denies any chest pain. No urinary complaints O/E: Awake alert vital signs are stable at the moment appears relatively c omfortable HEENT: Not jaundiced Chest: Air entry equal bilaterally Abd: Negative [place]: Patient is strongly favoring her left side, cannot lay flat on the exam table. Data: Elevated white cell count, elevated lactate, CT scan demonstrates perirectal abscess with air Impression: Perirectal abscess, possible fasciitis Plan: I will take to the operating room for incision, drainage, sharp debrid ement of the perirectal area. The risks of this procedure have been discussed. The possibility of bleeding, infection, recurrence were explained. Need for further surgeries and procedures were outlined. The fact that she will most likely be left with a scar, asymmetry, and the long-term possibility of a recurrence from this or a new site were explained. She understands and wishes to proceed.
[2023-02-04] MEDS ORDERED: MIDAZOLAM HCL 2 MG/2 ML INJ ONE (20:42)
[2023-02-04] MEDS ORDERED: FENTANYL CITR 100 MCG/2 ML ONE ×2 (20:42→21:34)
[2023-02-04] MEDS ORDERED: propofoL 200 MG/20 ML VIAL IV ONE (20:42)
[2023-02-04] MEDS ORDERED: LIDOCAINE 2% MPF 5 ML VIAL ONE (20:42)
[2023-02-04] MEDS: D5 0.45 NS 1,000 ML IV SCH ×2 (21:00→23:25)
--- NOTE | 2023-02-04 22:09 | P.OP ---
Preoperative diagnosis: Perirectal abscess Postoperative diagnosis: Perirectal abscess with fasciitis Primary procedure: Debridement of abscess Secondary procedure: Debridement of necrotic tissue Anesthesia: General Estimated blood loss: Less than 20 cc Specimen: Cultures taken no specimen sent Operative Technique: The patient brought the operating room and placed supine on the table. After the induction of adequate general endotracheal anesthesia, the area of the perineum was prepped with a Betadine solution, she was draped in the usual aseptic manner. On initial inspection of the perineal area we could see on the right side there was a necrotic area at approximately the 8 o'clock position from the anus. This consisted of necrotic open wound measuring approximately 2.5 cm x 1.5 cm. This was through the full-thickness of the skin. There was brownish she dishwater drainage coming from this. At this point attention was turned towards the anus itself. We could see on digital exam but there was an area of induration on the right side of the anal canal just above the dentate line. A anal speculum was placed. On visualize this area we could see that there is a chronic opening consistent with an opening for fistula in this area. Two 4 x 4's were held together with umbilical tape and this was used as a rectal tampon to prevent further contamination coming down into her wounds. The area of the fistula opening was coagulated with electrocautery. 2 scraggly pieces of hemorrhoidal tissue were also electrocautery in the area. Attention was now turned back tow ards our open wound. The edges were debrided with a cutting 11 surgical blade. We now using a surgical curette removed all the obviously infected and inflamed fatty tissue in the area. We were able to go superiorly to approximately the mid vaginal area anteriorly. Posteriorly were able to sweep our hand in this large abscess cavity posteriorly to well above the dentate line in the rectum. There did not appear to be any complete breakdown apart from the fistulotomy opening seen. This wound was now debrided of all necrotic material. A counterincision was made down on the right buttock. Through this we were able to pass a peon clamp. This allowed us to place a #1 Nida drain through this up into the depth of our cavity and out through the initial wound. In order to keep the wound open, it was packed with half-inch iodoform gauze. At this point are 4 x 4 rectal tampon was removed. The wound was partially closed to prevent gross contamination with just a loose suture of 0 chromic. Sterile dressings were then applied. At the end of the procedure the patient was in a stable condition was sent to the recovery room. Needle sponge instrument count were correct. A Nida dr zambrano was placed. Complications: None Drain(s): Other Transferred to: Recovery Room Condition: Good
[2023-02-04] MEDS ORDERED: MORPHINE 4 MG/ML SYR IV PRN (22:30)
[2023-02-04] MEDS: HYDROMORPHONE HCL 1 MG/ML INJ ONE ×2 (22:35→22:44)
[2023-02-04 23:17] VITALS: BMI 27.1
[2023-02-05] MEDS ORDERED: CLINDAMYCIN INJ 300 MG in NA CHLORIDE 0.9% 50 ML IV SCH ×2
[2023-02-05] MEDS ORDERED: CLINDAMYCIN 300MG D5W 300 MG/50 ML BAG IV SCH
[2023-02-05] MEDS ORDERED: CLINDAMYCIN INJ 600 MG in NA CHLORIDE 0.9% 50 ML IV SCH ×2
[2023-02-05] MEDS ORDERED: CLINDAMYCIN 600MG/D5W 50 ML IV SCH
[2023-02-05] MEDS: CLINDAMYCIN 600MG/D5W 50 ML IV SCH ×2 (00:07→13:00)
[2023-02-05] MEDS: PIPER TAZO 3.375 GM in NA CHLORIDE 0.9% 100 ML IV SCH ×3 (00:07→17:00)
[2023-02-05] MEDS: HYDROCODONE/APAP 10/325 TAB PO PRN ×2 (03:25→21:30)
[2023-02-05] MEDS: D5 0.45 NS 1,000 ML IV SCH ×3 (05:28→21:00)
[2023-02-05 06:52] LABS: Absolute Lymphocytes (CBC) 1.9 K/uL (0.7-4.9); Hematocrit 19.9 % (36.0-45.0); Lymphocytes % 11.7 % (15.3-44.8); MCV 77.7 fL (80-100); MPV 6.5 fL (7.6-11.3); Platelets 116 thou/uL (152-406); RBC Red Blood Cell Count 2.56 M/uL (3.86-4.86)
[2023-02-05 07:14] LABS: AST/SGOT 6 U/L (15-37); Alkaline Phosphatase 72 U/L (45-117); BUN Blood Urea Nitrogen 6 mg/dL (7-18); Bicarbonate 31 mEq/L (21-32); Bilirubin Total 0.2 mg/dL (0.2-1.0); Glomerular Filtration Rate 86 ml/min (=/>90); Glucose Level 145 mg/dL (74-106); Lipase 7 U/L (13-75); Potassium 2.9 mEq/L (3.5-5.1); Protein, Total 4.5 g/dL (6.4-8.2); Sodium Level 134 mEq/L (136-145)
[2023-02-05 07:15] LABS: ALT/SGPT < 10 U/L (13-56); Bilirubin Direct < 0.1 mg/dL (0-0.2); Bilirubin Indirect, Calculated ND mg/dL (0.2-0.8)
[2023-02-05 07:17] LABS: Albumin 0.8 g/dL (3.4-5.0)
[2023-02-05] MEDS ORDERED: VANCOMYCIN 1.25 GM in NA CHLORIDE 0.9% 250 ML IVPB SCH (09:00)
[2023-02-05] MEDS: VANCOMYCIN 1.25 GM in NA CHLORIDE 0.9% 250 ML IVPB SCH (11:01)
--- NOTE | 2023-02-05 13:11 | P.PN ---
Date of Service: 02/05/23 . S: Patient feels well today, says her pain is a lot better. Still having diarrhea. O: Patient awake alert vital signs are stable, not tachycardic. Her labs show white cell count has gone down, her hemoglobin is at 6.6. Her BUN and creatinine are stable. A: Patient appears to be much improved since having her abscess drained. On further questioning the patient is complained that she has been having diarrhea as mentioned since . Says that she had noticed a boil forming on her right buttock since last [5 days ago]. Was having a lot of pain and discomfort whenever she tried to walk or move. She had been constipated, and her mother had given her laxatives prior to her presentation to the hospital. P: Patient is improved since drainage of her original abscess. I will most likely take her back to the OR tomorrow to remove the packing, and we explored the wound to ensure we have all necrotic material out of the area that had fasciitis. In the meantime we will continue IV fluids, pain medicine, and her antibiotic regime.
[2023-02-06] MEDS: CLINDAMYCIN 600MG/D5W 50 ML IV SCH ×2 (00:30→12:46)
[2023-02-06] MEDS: PIPER TAZO 3.375 GM in NA CHLORIDE 0.9% 100 ML IV SCH ×3 (00:30→17:00)
[2023-02-06] MEDS: D5 0.45 NS 1,000 ML IV SCH ×4 (00:38→19:44)
[2023-02-06] MEDS: VANCOMYCIN 1.25 GM in NA CHLORIDE 0.9% 250 ML IVPB SCH ×2 (04:27→21:56)
[2023-02-06] MEDS: KCL 20 MEQ/100 mL IVPB 20 MEQ/100 ML BAG IV SCH ×2 (09:35→12:00)
[2023-02-06 10:37] LABS: Absolute Lymphocytes (CBC) 1.8 K/uL (0.7-4.9); Hematocrit 20.9 % (36.0-45.0); Lymphocytes % 11.1 % (15.3-44.8); MCV 76.5 fL (80-100); MPV 7.4 fL (7.6-11.3); Platelets 101 thou/uL (152-406); RBC Red Blood Cell Count 2.73 M/uL (3.86-4.86)
[2023-02-06 10:57] LABS: Potassium 2.9 mEq/L (3.5-5.1)
--- NOTE | 2023-02-06 15:13 | P.PN ---
Date of Service: 02/06/23 . S: Patient feels well today, says her pain is a lot better. Still having diarrhea. O: Patient awake alert vital signs are stable, not tachycardic. Her labs show white cell count has gone down, her hemoglobin is at 6.6. Her BUN and creatinine are stable. A: Patient appears to be much improved since having her abscess drained. On further questioning the patient is complained that she has been having diarrhea as mentioned since . Says that she had noticed a boil forming on her right buttock since last [5 days ago]. Was having a lot of pain and discomfort whenever she tried to walk or move. She had been constipated, and her mother had given her laxatives prior to her presentation to the hospital. S: Patient has no specific complaints today, says she feels pretty good. Able to pee on her own. She says she has not had any bowel movements today, [nurse says she has had 4 loose stools] O: Clinically the patient looks well, white cell count is coming down, electrolytes are starting to resolve. A: Clinically the patient looks well. Has remained afebrile. Her white cell count is responding. P: I have made her n.p.o., I will take her back to the operating room tomorrow instead of today. This will allow us to washout the wound 1 more time. She remains afebrile so I both do believe most of the necrotic material has been removed. At that time we will decide if we can start putting JODIE drains, partial closure, or with a neck step will be. I have explained this to the patient, she understands and wants to proceed.
[2023-02-07] MEDS: CLINDAMYCIN 600MG/D5W 50 ML IV SCH ×2 (01:00→12:13)
[2023-02-07] MEDS: PIPER TAZO 3.375 GM in NA CHLORIDE 0.9% 100 ML IV SCH ×2 (01:55→10:13)
[2023-02-07] MEDS: D5 0.45 NS 1,000 ML IV SCH ×3 (05:00→13:00)
[2023-02-07] MEDS: Mupirocin NASAL 2 APPL/1 GM TUBE NAS SCH ×2 (09:00→21:55)
[2023-02-07] MEDS: KCL 20 MEQ/100 mL IVPB 20 MEQ/100 ML BAG IV SCH ×2 (10:13→12:13)
[2023-02-07] MEDS ORDERED: BUPIVACAINE 0.25% PF 30 ML VIAL ONE (12:41)
[2023-02-07] MEDS ORDERED: Ringers Lactate 1,000 ML IV ONE (13:04)
[2023-02-07] MEDS ORDERED: FENTANYL CITR 100 MCG/2 ML ONE ×2 (13:14→13:45)
[2023-02-07] MEDS ORDERED: MIDAZOLAM HCL 2 MG/2 ML INJ ONE (13:14)
[2023-02-07] MEDS ORDERED: propofoL 200 MG/20 ML VIAL IV ONE (13:14)
--- NOTE | 2023-02-07 14:21 | P.OP ---
Primary procedure: Debridement of abscess cavity and necrotic tissue Secondary procedure: Approximation of wound Other procedure(s): Establishment of surgical drainage Anesthesia: General Estimated blood loss: Less than 10 cc Specimen: None sent Operative Technique: The patient brought the operating room and placed supine on the table. After the induction of adequate general endotracheal anesthesia, the area of the perineum was prepped with a Betadine solution, she was draped in the usual aseptic manner. The patient, in lithotomy, was then placed in Trendelenburg. We could visualize a full perineum. We could visualize a surgical wound that had been created from debridement and drainage of the abscess on her prior surgery. The skin edges are clean and viable. The cavity of the abscess had 1 small area of necrotic tissue that was sharply debrided using a cutting 11 surgical blade. The wound was now irrigated with a pulse lavage until the effluent was clear. A [place] drain having been removed, the tract was gently probed with a peon. We were able to place a #10 Leonides-Sauer drain into the wound and out through this area. Attention was turned towards the skin edges of this large abscess cavity that measured approximately 14 cm x 8 cm x 6 cm. The Nida was left in the depths of the wound. We were able to approximate the skin edges with interrupted sutures of chromic to loosely approximate them. Attention was turned towards the rectal cavity. Once again after placing our rectal retractor we could see the area superior to this pathology still showed some erythema and inflammation. The prior opening where the fistula had been appears to be closed. At this point the wound that it was closed with chromic was covered with triple antibiotic to help seal the wound and protect it when the patient has bowel movements. A dressing was then applied. At the end of the procedure she was in a stable condition was sent to the recovery room. Needle sponge instrument count were correct. [address] Minimal blood loss. Complications: None Drain(s): JODIE drain, Other Transferred to: Recovery Room Condition: Good
[2023-02-07] MEDS: FENTANYL CITR 100 MCG/2 ML ONE ×2 (14:50→14:54)
[2023-02-07] MEDS: NS KCL 20MEQ 20 MEQ/1,000 ML BAG IV SCH (15:00)
--- NOTE | 2023-02-07 15:20 | RAD REPORT ---
EXAM DESCRIPTION: RAD - Chest Single View - 02/07/2023 3:55 am CLINICAL HISTORY: The patient is 27 years old and is Female; post PICC insertion TECHNIQUE: Frontal view of the chest. COMPARISON: No relevant prior studies available. FINDINGS: Lungs: Hazy opacification of the right lung which may be due to overlying soft tissue or airspace disease. Pleural space: Unremarkable. No pneumothorax. Heart: Unremarkable. Mediastinum: Unremarkable. Normal mediastinal contour. Bones/joints: No acute findings. Tubes, lines and devices: Left PICC with tip in the SVC. IMPRESSION: Hazy opacification of the right lung which may be due to overlying soft tissue or airspa ce disease. Electronically signed by: Lionel Medeiros MD 02/07/2023 04:27 AM [employer] Due to temporary technical issues with the PACS/Fluency reporting system, reports are being signed by the in house radiologists without review as a courtesy to insure prompt reporting. The interpreting radiologist is fully responsible for the content of the report.
[2023-02-07] MEDS ORDERED: CEFTAZIDIME 1 GM VIAL IV SCH (17:00)
[2023-02-07] MEDS: CEFTAZIDIME 1 GM in NA CHLORIDE 0.9% 50 ML IV SCH (17:00)
[2023-02-07] MEDS ORDERED: POTASSIUM CL SA 10 MEQ TAB PO ONE (18:06)
[2023-02-08] MEDS: CEFTAZIDIME 1 GM in NA CHLORIDE 0.9% 50 ML IV SCH ×3 (02:21→17:55)
[2023-02-08] MEDS: Mupirocin NASAL 2 APPL/1 GM TUBE NAS SCH ×2 (09:00→20:55)
[2023-02-08] MEDS: NS KCL 20MEQ 20 MEQ/1,000 ML BAG IV SCH ×2 (11:00→22:00)
[2023-02-08] MEDS: HYDROCODONE/APAP 10/325 TAB PO PRN ×2 (11:55→19:54)
--- NOTE | 2023-02-08 14:28 | P.PN ---
Date of Service: 02/08/23 . S: Patient feels better today, a lot more comfortable than when she was and in very good spirits. Tolerating a diet. Says her heart rate goes up when she goe s to the restroom or exerts herself. Pain is controlled just on oral medication, no longer needs morphine. O: Vital signs are stable, is tachycardic. Clinically looks well. Abdomen is soft, JODIE drain intact. A: Surgically stable status post incision, drainage, and debridement of abscess with necrotizing fasciitis and perianal fistula P: Patient is on antibiotics, will try and get a check for C. difficile. I will seek a consult with the hospitalist, to help with medical management of this patient. Patient is happy with this plan.
[2023-02-08] MEDS ORDERED: ALTEPLASE 2 MG/VIAL IV SCH (16:00)
--- NOTE | 2023-02-08 16:09 | P.CNS ---
Date of Consult: 02/08/23 Reason for Consult: tachycardia/ medical management Requesting Physician: Reed Ro Chief Complaint: s/p perirectal abscess I&D, tachycardia History of Present Illness: 27yo F with no significant PMH per self-report presented to ED with diarrhea and rectal pain, found to have perirectal abscess and underwent surgical I&D by Dr. Ro and noted to have fasciitis. Post-operatively she has noted improvement of her diarrhea, but has been noted to have increasing tachycardia of unclear etiology. Upon further questioning and discussion, she stated she was diagnosed with gestational diabetes and anemia during her last ~4yrs ago. She has not taken any medication since her , stating she was never prescribed any medications to take. She does not regularly see a physician. On admission she was noted to be anemic and hgb dropped to 6.6 on day after admission, and rising to 7.2 the following day. She has been a hard-stick and has been reluctant to allow blood-draws. A PICC was placed but has not been func tioning well enough to pull blood. She reports some changes from brown diarrhea / dark black diarrhea / and occasional bloody stools in the few days leading up to admission. Discussed my concern she may be more anemic than the 6.6 she was a few days ago and likely needs blood, or at least IV iron, but we need to check labs before ordering any transfusions/iv infusions. Allergies No Known Allergies Allergy (Unverified 02/04/23 17:25) Home medications list reviewed: Yes Home Medications: NK [No Home Meds] 02/05/23 - Past Medical/Surgical History Diabetic: No -: gestational diabetes -: anemia -: left hand sx -: skin graft - Social History Smoking Status: Former smoker Alcohol use: No CD- Drugs: No Place of Residence: Home Review of Systems 10-point ROS is otherwise unremarkable Physical Examination Temp Pulse Resp BP Pulse Ox 97.8 F 126 H 20 135/70 99 02/08/23 12:00 02/08/23 12:00 02/08/23 12:00 02/08/23 12:02/08/23 12:00 General: Alert, In no apparent distress, Oriented x3 HEENT: EOMI, Sclerae nonicteric Neck: Supple, No LAD Respiratory: Clear to auscultation bilaterally, Normal air movement Cardiovascular: No edema, Irregular heart rate/rhythm (sinus tachycardia) Gastrointestinal: Soft and benign, Non-distended Musculoskeletal: No contractures, No tenderness Integumentary: No rashes, No significant lesion Neurological: Normal speech, Normal affect Physician Review Additional Text: Problem List Anemia, suspect iron deficiency, acute on chronic with blood loss component Tachycardia secondary to above perirectal abscess with fasciitis s/p I&D suspect tachycardia is secondary to anemia patient's hgb was 6.6 and 7.2 a few days ago hard stick and has been resistant to blood draws, PICC line has not been drawing back will troubleshoot PICC line discussed with patient will need to get blood draw to check H/H suspect hgb is lower and will need at least 1, if not 2 units of PRBCs check iron studies as well antibiotics and pain medication per general surgery for her jamal-rectal abscess Time Spent Managing Pts care (In Minutes): 35
[2023-02-08 16:43] LABS: Potassium 3.2 mEq/L (3.5-5.1)
[2023-02-08 16:47] LABS: Absolute Lymphocytes (CBC) 1.6 K/uL (0.7-4.9); Hematocrit 16.9 % (36.0-45.0); Lymphocytes % 18.1 % (15.3-44.8); MCV 77.8 fL (80-100); MPV 6.8 fL (7.6-11.3); Platelets 128 thou/uL (152-406); RBC Red Blood Cell Count 2.17 M/uL (3.86-4.86)
[2023-02-08] MEDS ORDERED: NA CHLORIDE 0.9% 250 ML IV SCH (18:00)
[2023-02-09] MEDS: CEFTAZIDIME 1 GM in NA CHLORIDE 0.9% 50 ML IV SCH ×3 (01:42→17:19)
[2023-02-09] MEDS: ACETAMINOPHEN 500 MG TAB PO PRN ×2 (03:31→12:30)
[2023-02-09] MEDS: NS KCL 20MEQ 20 MEQ/1,000 ML BAG IV SCH ×2 (06:10→07:56)
[2023-02-09] MEDS: Mupirocin NASAL 2 APPL/1 GM TUBE NAS SCH ×2 (07:55→20:13)
[2023-02-09 08:13] LABS: MCV 78.3 fL (80-100); MPV 6.4 fL (7.6-11.3); Platelets 138 thou/uL (152-406); RBC Red Blood Cell Count 2.04 M/uL (3.86-4.86)
[2023-02-09 08:33] LABS: Magnesium 1.4 mg/dL (1.6-2.4); Potassium 5.1 mEq/L (3.5-5.1)
--- NOTE | 2023-02-09 09:41 | P.PN ---
Date of Service: 02/09/23 Subjective: Remains tachycardic - episode of HR up to 170s after getting up overnight 120s-130s at rest Patients blood noted to be positive for antibodies - delaying transfusion; still undergoing further testing denies black / red stool. No obvious bleeding in last 2 days Feels very cold today afebrile ROS: 10 point ROS as noted above, otherwise negative Physical Exam: GEN: Alert, oriented, NAD HEENT: Normal conjunctiva, sclera anicteric, CV: Sinus tachycardia, no edema Pulm: Nonlabored respirations on room air, clear bilaterally ABD: soft, nontender, nondistended Integumentary: No rashes. Dressing in place Neuro: Normal speech, normal affect [address] Problem List: iron deficiency Anemia, acute on chronic with blood loss component Tachycardia secondary to above perirectal abscess with fasciitis s/p I&D (02/04) gestational diabetes Hypocalcemia tachycardia secondary to anemia patient's hgb was 6.6 and 7.2 a few days ago Patients blood noted to be positive for antibodies - delaying transfusion hgb 5.7 -> 5.3 (02/09) 2 uPRBC ordered - delayed secondary to blood availability f awaiting callback from blood bank moderate iron deficiency workup sent off for hemolytic cause Wound cx (02/04): Enterobacter Cloacae antibiotics and pain medication per general surgery for her jamal-rectal abscess Previously given clinda / zosyn / vanc (02/05-02/07) Currently on Ceftazidime (02/07-); recommend completing 7 day course Urine cx (02/04): Enterococcus Faecalis add augmentin 02/09 Code: Full Dispo: Home, 2-3 days
[2023-02-09] MEDS ORDERED: Magnesium Sulfate 2gm IVPB 2 G/50 ML BAG IV ONE (11:06)
[2023-02-09] MEDS: NA CHLORIDE 0.9% 1,000 ML IV SCH ×2 (12:04→22:00)
[2023-02-09] MEDS: AMOX/K CLAV 875 MG TAB PO SCH ×2 (15:41→20:14)
[2023-02-09 16:24] LABS: RBC Red Blood Cell Count 2.17 M/uL (3.86-4.86)
[2023-02-09] MEDS ORDERED: CEFTAZIDIME 1 GM VIAL ONE ×2 (17:17→23:39)
[2023-02-09] MEDS ORDERED: NA CHLORIDE 0.9% 100 ML ONE ×2 (17:18→23:40)
[2023-02-09] MEDS ORDERED: NA CHLORIDE 0.9% 50 ML ONE (17:20)
[2023-02-09] MEDS ORDERED: METHYLPREDNISOLONE 40 MG INJ IV PRN (17:25)
[2023-02-09] MEDS ORDERED: DIPHENHYDRAMINE 50 MG/ML VIAL IV PRN (17:31)
[2023-02-09] MEDS ORDERED: ALBUMIN HUMAN 25% 100 ML IV ONE ×2 (18:00→22:02)
[2023-02-09 18:24] LABS: Anisocytosis 1+; Blood Morphology Comment NOTED (NOT SEEN); Hypochromasia 1+; Platelet Estimate DECR; Poikilocytosis 1+; Polychromasia 1+; Teardrop Cell 1+
[2023-02-09] MEDS ORDERED: AMOX/K CLAV 875 MG TAB ONE (19:40)
[2023-02-09] MEDS ORDERED: NA CHLORIDE 0.9% 1,000 ML ONE (21:46)
[2023-02-10] MEDS: CEFTAZIDIME 1 GM in NA CHLORIDE 0.9% 50 ML IV SCH ×3 (00:19→16:09)
[2023-02-10 00:29] LABS: Hematocrit 19.7 % (36.0-45.0)
[2023-02-10] MEDS ORDERED: HYDROCODONE/APAP 10/325 TAB ONE ×5 (01:47→22:12)
[2023-02-10] MEDS: HYDROCODONE/APAP 10/325 TAB PO PRN ×5 (01:49→22:10)
[2023-02-10 04:53] LABS: Absolute Lymphocytes (CBC) 1.5 K/uL (0.7-4.9); Lymphocytes % 12.1 % (15.3-44.8); MCV 76.4 fL (80-100); MPV 6.5 fL (7.6-11.3); Platelets 153 thou/uL (152-406); RBC Red Blood Cell Count 2.74 M/uL (3.86-4.86)
[2023-02-10 05:12] LABS: Albumin 1.6 g/dL (3.4-5.0); Bilirubin Total 0.5 mg/dL (0.2-1.0); C-Reactive Protein 27.4 mg/L (<3.00); Magnesium 1.9 mg/dL (1.6-2.4); Phosphorus 3.7 mg/dL (2.5-4.9); Potassium 3.3 mEq/L (3.5-5.1); Protein, Total 5.2 g/dL (6.4-8.2)
[2023-02-10] MEDS: KCL 20 MEQ/100 mL IVPB 20 MEQ/100 ML BAG IV SCH ×2 (05:37→08:48)
[2023-02-10] MEDS ORDERED: KCL 20 MEQ/100 mL IVPB 100 ML IV ONE (05:37)
--- NOTE | 2023-02-10 07:19 | P.PN ---
Date of Service: 02/10/23 Subjective: transferred to ICU yesterday feels ~same as yesterday tolerated blood transfusion yesterday without issues HR improving, now in ~110s afebrile ROS: 10 point ROS as noted above, otherwise negative Physical Exam: GEN: Alert, oriented, NAD HEENT: Normal conjunctiva, sclera anicteric, CV: Sinus tachycardia, no edema Pulm: Nonlabored respirations on room air, clear bilaterally ABD: soft, nontender, nondistended Integumentary: No rashes. Dressing in place Neuro: Normal speech, normal affect [address] Problem List: iron deficiency Anemia, acute on chronic with blood loss component Tachycardia secondary to above perirectal abscess with fasciitis s/p I&D (02/04) UTI, Enterococcus Faecalis gestational diabetes Hypocalcemia iron deficiency Anemia, acute on chronic with blood loss component Tachycardia secondary to above tachycardia secondary to anemia patient's hgb was 6.6 and 7.2 a few days ago Patients blood noted to be positive for antibodies - delaying transfusion hgb down to 5.3 (1.3) - HR up to 130s-140s, up to 180s with movement, +dizzy, +cold Transferred to ICU 02/09 for emergent transfusion s/p 1 uPRBC (02/09) - tolerated without issues moderate iron deficiency hgb 6.5 -> 7.0 (02/10) Discussed with Dr. Mcleod, who reviewed labs electronically. Recommend goal hgb > 6.0 suspect acute blood loss anemia workup sent off for hemolytic cause LDH normal, retic% elevated no evidence of hemolysis Start IV iron Given albumin yesterday perirectal abscess with fasciitis s/p I&D (02/04) Wound cx (02/04): Enterobacter Cloacae antibiotics and pain medication per general surgery for her jamal-rectal abscess Previously given clinda / zosyn / vanc (02/05-02/07) Currently on Ceftazidime (02/07-); recommend completing 7 day course UTI, Enterococcus Faecalis Urine cx (02/04): Enterococcus Faecalis continue augmentin (02/09-) Code: Full Dispo: Home, 2-3 days Likely downgrade to floor today
[2023-02-10] MEDS ORDERED: AMOX/K CLAV 875 MG TAB ONE ×2 (08:15→19:31)
[2023-02-10] MEDS: D5 0.45 NS 1,000 ML IV SCH (08:48)
[2023-02-10] MEDS: AMOX/K CLAV 875 MG TAB PO SCH ×2 (08:48→20:10)
[2023-02-10] MEDS: SOD FERRIC GLUC COMPLX/SUCROSE 250 MG in NA CHLORIDE 0.9% 250 ML IV SCH (08:49)
[2023-02-10] MEDS: Mupirocin NASAL 2 APPL/1 GM TUBE NAS SCH ×2 (08:49→20:20)
[2023-02-10] MEDS ORDERED: CEFTAZIDIME 1 GM VIAL ONE ×3 (09:23→23:54)
[2023-02-10] MEDS ORDERED: NA CHLORIDE 0.9% 50 ML ONE ×2 (09:23→15:45)
[2023-02-10 21:20] LABS: Hematocrit 20.8 % (36.0-45.0); MCV 77.4 fL (80-100); MPV 6.4 fL (7.6-11.3); Platelets 165 thou/uL (152-406); RBC Red Blood Cell Count 2.69 M/uL (3.86-4.86)
[2023-02-10] MEDS ORDERED: NA CHLORIDE 0.9% 100 ML ONE (23:53)
[2023-02-11] MEDS: CEFTAZIDIME 1 GM in NA CHLORIDE 0.9% 50 ML IV SCH ×3 (00:28→17:02)
[2023-02-11] MEDS: HYDROCODONE/APAP 10/325 TAB PO PRN (03:20)
[2023-02-11] MEDS ORDERED: HYDROCODONE/APAP 10/325 TAB ONE (03:22)
[2023-02-11] MEDS: D5 0.45 NS 1,000 ML IV SCH ×2 (03:32→23:42)
[2023-02-11 06:16] LABS: Absolute Lymphocytes (CBC) 1.7 K/uL (0.7-4.9); Hematocrit 21.9 % (36.0-45.0); Lymphocytes % 13.1 % (15.3-44.8); MCV 78.5 fL (80-100); MPV 6.5 fL (7.6-11.3); Platelets 186 thou/uL (152-406); RBC Red Blood Cell Count 2.78 M/uL (3.86-4.86)
[2023-02-11 06:28] LABS: C-Reactive Protein 24.4 mg/L (<3.00); Magnesium 1.7 mg/dL (1.6-2.4); Potassium 3.5 mEq/L (3.5-5.1)
[2023-02-11] MEDS ORDERED: KCL 20 MEQ/100 mL IVPB 20 MEQ/100 ML BAG IV SCH (07:00)
[2023-02-11] MEDS: SOD FERRIC GLUC COMPLX/SUCROSE 250 MG in NA CHLORIDE 0.9% 250 ML IV SCH (08:33)
[2023-02-11] MEDS: Mupirocin NASAL 2 APPL/1 GM TUBE NAS SCH ×2 (08:33→20:50)
[2023-02-11] MEDS ORDERED: AMOX/K CLAV 875 MG TAB ONE ×2 (08:41→20:36)
[2023-02-11] MEDS ORDERED: CEFTAZIDIME 1 GM VIAL ONE ×2 (08:41→17:00)
[2023-02-11] MEDS ORDERED: NA CHLORIDE 0.9% 0 ML ONE (08:41)
[2023-02-11] MEDS ORDERED: NA CHLORIDE 0.9% 50 ML ONE ×2 (08:43→17:00)
[2023-02-11] MEDS: AMOX/K CLAV 875 MG TAB PO SCH ×2 (08:45→20:50)
--- NOTE | 2023-02-11 09:52 | P.PN ---
Date of Service: 02/11/23 Subjective: Doing okay, feels better ambulating with assistance / RW no acute events overnight HR in 110s afebrile ROS: 10 point ROS as noted above, otherwise negative Physical Exam: GEN: Alert, oriented, NAD HEENT: Normal conjunctiva, sclera anicteric, CV: Sinus tachycardia, no edema Pulm: Nonlabored respirations on room air, clear bilaterally ABD: soft, nontender, nondistended Integumentary: No rashes. Dressing in place Neuro: Normal speech, normal affect [address] Problem List: iron deficiency Anemia, acute on chronic with blood loss component Tachycardia secondary to above perirectal abscess with fasciitis s/p I&D (02/04) UTI, Enterococcus Faecalis gestational diabetes Hypocalcemia iron deficiency Anemia, acute on chronic with blood loss component Tachycardia secondary to above tachycardia secondary to anemia patient's hgb was 6.6 and 7.2 a few days ago Patients blood noted to be positive for antibodies - delaying transfusion hgb down to 5.3 (1.3) - HR up to 130s-140s, up to 180s with movement, +dizzy, +cold Transferred to ICU 02/09 for emergent transfusion s/p 1 uPRBC (02/09) - tolerated without issues moderate iron deficiency hgb 6.9 -> 7.1 (02/11) continue IV iron; s/p 2 bags so far Given albumin (02/09) GI consulted (02/10) continue IV fluids Discussed with Dr. Mcleod, who reviewed labs electronically. Recommend goal hgb > 6.0 suspect acute blood loss anemia workup sent off for hemolytic cause - workup so far negative for hemolysis LDH normal, retic% elevated no evidence of hemolysis perirectal abscess with fasciitis s/p I&D (02/04) Wound cx (02/04): Enterobacter Cloacae antibiotics and pain medication per general surgery for her jamal-rectal abscess Previously given clinda / zosyn / vanc (02/05-02/07) Currently on Ceftazidime (02/07-); recommend completing 7 day course drainage darker in JODIE drain - will update general surgery, may need to go back to OR UTI, Enterococcus Faecalis Urine cx (02/04): Enterococcus Faecalis continue augmentin (02/09-) Code: Full Dispo: Home, 2-3 days
[2023-02-11] MEDS ORDERED: ACETAMINOPHEN 500 MG TAB ONE (13:36)
[2023-02-11] MEDS: ACETAMINOPHEN 500 MG TAB PO PRN (13:41)
--- NOTE | 2023-02-11 14:03 | EKG ---
Test Date: 2023-02-04 Test Time: 21:53:19 Television Installer Helper: JESSICA MEASUREMENT RESULTS: Intervals: Rate: 125 AK: 116 QRSD: 74 QT: 294 QTc: 424 [place]: P: 86 AK: 116 QRS: 50 T: 12 INTERPRETIVE STATEMENTS: Sinus tachycardia Otherwise normal ECG Compared to ECG 08/11/2022 17:11:23 Sinus rhythm no longer present Sinus arrhythmia no longer present Electronically Signed On 02-11-23 13:47:39 MOTOR ANALYST by Abisai Rose
[2023-02-11] MEDS ORDERED: Ringers Lactate 1,000 ML IV ONE (17:34)
[2023-02-11] MEDS ORDERED: BUPIVACAINE 0.5% PF 10 ML VIAL ONE (17:51)
[2023-02-11] MEDS ORDERED: FENTANYL CITR 100 MCG/2 ML ONE ×2 (17:54→18:37)
[2023-02-11] MEDS ORDERED: propofoL 200 MG/20 ML VIAL IV ONE (17:54)
[2023-02-11] MEDS ORDERED: MIDAZOLAM HCL 2 MG/2 ML INJ ONE (17:55)
--- NOTE | 2023-02-11 17:56 | P.PN ---
Date of Service: 02/11/23 . S: Patient feels better today, a lot more comfortable than when she was and in very good spirits. Tolerating a diet. Says her heart rate goes up when she goe s to the restroom or exerts herself. Pain is controlled just on oral medication, no longer needs morphine. O: Vital signs are stable, is tachycardic. Clinically looks well. Abdomen is soft, JODIE drain intact. A: Surgically stable status post incision, drainage, and debridement of abscess with necrotizing fasciitis and perianal fistula P: Patient is on antibiotics, will try and get a check for C. difficile. I will seek a consult with the hospitalist, to help with medical management of this patient. Patient is happy with this plan. S: Patient has no specific complaints today, complaining that the light however is bothering her eyes. Other than that no complaints about her buttock area. O: Patient vital signs are stable, adequate urine output. She has minimal drainage out through her JODIE drain, however the quality of the drainage is changed. It is no longer serious but actually has at this confiscated reddish- brown color that was initially found on her initial surgery. A: Patient had been doing well postoperatively. However I am concerned that the change in the drainage, may indicate that the lateral wall of the rectum has once again opened up and is now draining back into her abscess cavity. P: Once again I have made the patient n.p.o., will take her back to the operating room this evening [patient has just had her lunch] for exploration of this wound. My concern is that the lateral wall of the rectum just at the dentate line has once again again given way. It appears that there is drainage going laterally into her abscess cavity. The risks of this procedure have been discussed with the patient. The possibility of bleeding, infection, again need for further surgeries and procedures was discussed. She understands and wants us to proceed.
--- NOTE | 2023-02-11 19:06 | P.OP ---
Preoperative diagnosis: Perirectal fistula, ischial rectal abscess Postoperative diagnosis: Perirectal fistula, history of rectal abscess cavity Primary procedure: Examination under anesthesia Secondary procedure: Reapproximation of the surgical wound Anesthesia: General Estimated blood loss: Less than 10 cc Operative Technique: The patient brought the operating room and placed supine on the table. After t he induction of adequate general endotracheal anesthesia, the area of the perineum was prepped with a Betadine solution, she was draped in the usual aseptic manner. The patient being in lithotomy position was then placed with marked Trendelenburg. We were able to visualize the peritoneal cavity. On the right side, where the wound had drained spontaneously and we had explored just lateral to the anal canal/rectum had pulled out his chromic sutures. There was judy stool just inside the wound edges. This area was cleansed debrided and irrigated. He now visualize down to the depth of the remaining cavity. We have very good clean viable tissue showing signs of healing. There was no purulent material noted. Attention was turned towards the anal canal itself. After placing a rectal retractor, we could once again visualize the right lateral sidewall of the anal rectal junction. The fistula that area appears to have closed. The area is still quite erythematous and inflamed, but did not appear to show any full-thickness necrosis at this time. We did not find a open communication between the anal rectal area and the abscess cavity. I believe, due to the size of the wound and proximity to the anal canal, there was some contamination when the patient was having bowel movements and the wound had disrupted. Attention was turned towards the edges of the wound where the abscess had spontaneously blown out. We reapproximated this area again with interrupted sutures of PDS. Our packings were removed. At the end of procedure a dressing was applied. She was stable and sent to the recovery room. Complications: None Drain(s): JODIE drain, Other Transferred to: Recovery Room Condition: Good
[2023-02-11] MEDS: HYDROMORPHONE HCL 1 MG/ML INJ ONE ×2 (19:45→19:50)
[2023-02-12] MEDS ORDERED: NA CHLORIDE 0.9% 100 ML ONE (00:26)
[2023-02-12] MEDS ORDERED: CEFTAZIDIME 1 GM VIAL ONE (00:26)
[2023-02-12] MEDS: CEFTAZIDIME 1 GM in NA CHLORIDE 0.9% 50 ML IV SCH ×2 (00:29→09:02)
[2023-02-12] MEDS ORDERED: HYDROCODONE/APAP 10/325 TAB ONE (04:27)
[2023-02-12] MEDS: HYDROCODONE/APAP 10/325 TAB PO PRN ×2 (04:30→17:46)
[2023-02-12 04:38] LABS: Absolute Lymphocytes (CBC) 1.6 K/uL (0.7-4.9); Hematocrit 21.9 % (36.0-45.0); Lymphocytes % 12.1 % (15.3-44.8); MCV 78.7 fL (80-100); MPV 6.5 fL (7.6-11.3); Platelets 215 thou/uL (152-406); RBC Red Blood Cell Count 2.79 M/uL (3.86-4.86)
[2023-02-12 05:00] LABS: C-Reactive Protein 31.2 mg/L (<3.00); Magnesium 1.3 mg/dL (1.6-2.4); Potassium 3.6 mEq/L (3.5-5.1)
[2023-02-12] MEDS ORDERED: KCL 20 MEQ/100 mL IVPB 100 ML IV ONE (05:39)
[2023-02-12] MEDS ORDERED: KCL 20 MEQ/100 mL IVPB 20 MEQ/100 ML BAG IV SCH (06:00)
[2023-02-12] MEDS: AMOX/K CLAV 875 MG TAB PO SCH ×2 (09:00→21:04)
[2023-02-12] MEDS: SOD FERRIC GLUC COMPLX/SUCROSE 250 MG in NA CHLORIDE 0.9% 250 ML IV SCH (09:01)
[2023-02-12] MEDS ORDERED: MAGNESIUM 50% 3 GM in NA CHLORIDE 0.9% 100 ML IV ONE (10:30)
--- NOTE | 2023-02-12 11:54 | P.PN ---
Date of Service: 02/12/23 Subjective: Feeling better Ambulating, on room air no new / worsening problems taken to OR yesterday for reexamination / reapproximation of surgical wound with Dr. Ro Downgrade to floor today ROS: 10 point ROS as noted above, otherwise negative Physical Exam: GEN: Alert, oriented, NAD HEENT: Normal conjunctiva, sclera anicteric, CV: Sinus tachycardia, no edema Pulm: Nonlabored respirations on room air, clear bilaterally ABD: soft, nontender, nondistended Integumentary: No rashes. Dressing in place Neuro: Normal speech, normal affect [address] Problem List: iron deficiency Anemia, acute on chronic with blood loss component Tachycardia secondary to above perirectal abscess with fasciitis s/p I&D (02/04) UTI, Enterococcus Faecalis gestational diabetes Hypocalcemia iron deficiency Anemia, acute on chronic with blood loss component Tachycardia secondary to above tachycardia secondary to anemia patient's hgb was 6.6 and 7.2 a few days ago Patients blood noted to be positive for antibodies - delaying transfusion hgb down to 5.3 (1.3) - HR up to 130s-140s, up to 180s with movement, +dizzy, +cold Transferred to ICU 02/09 for emergent transfusion s/p 1 uPRBC (02/09) - tolerated without issues moderate iron deficiency hgb stable in low 7s last 24 hours continue IV iron; s/p 3 bags so far Given albumin (02/09) GI consulted (02/10) continue IV fluids Discussed with Dr. Mcleod, who reviewed labs electronically. Recommend goal hgb > 6.0 suspect acute blood loss anemia workup sent off for hemolytic cause - workup so far negative for hemolysis LDH normal, retic% elevated no evidence of hemolysis perirectal abscess with fasciitis s/p I&D (02/04) Wound cx (02/04): Enterobacter Cloacae antibiotics and pain medication per general surgery for her jamal-rectal abscess Previously given clinda / zosyn / vanc (02/05-02/07) completed 1 week of Ceftazidime (02/07-02/12) drainage darker in JODIE drain - Updated General surgery taken back to the OR yesterday evening (02/11) for reexamination / reapproximation of surgical wound with Dr. Ro UTI, Enterococcus Faecalis Urine cx (02/04): Enterococcus Faecalis continue augmentin (02/09-) Code: Full Dispo: Home, 2-3 days Downgrade to floor today
[2023-02-12] MEDS: D5 0.45 NS 1,000 ML IV SCH (17:51)
[2023-02-13] MEDS: HYDROCODONE/APAP 10/325 TAB PO PRN ×3 (03:04→22:55)
[2023-02-13 07:27] LABS: Absolute Lymphocytes (CBC) 1.4 K/uL (0.7-4.9); Lymphocytes % 15.9 % (15.3-44.8); MCV 79.9 fL (80-100); MPV 6.4 fL (7.6-11.3); Platelets 190 thou/uL (152-406)
[2023-02-13] MEDS ORDERED: NA CHLORIDE 0.9% 250 ML IV SCH (08:00)
--- NOTE | 2023-02-13 08:24 | P.PN ---
Date of Service: 02/13/23 Subjective: HR in 120-130s at rest overnight / this morning; feels HR is faster hgb down to 4.7 this morning from 7; suspect hemolyzed sample, recheck was 6.1 without transfusion slight blood in stool overnight per nursing staff appetite improved afebrile ROS: 10 point ROS as noted above, otherwise negative Physical Exam: GEN: Alert, oriented, NAD HEENT: Normal conjunctiva, sclera anicteric, CV: Sinus tachycardia, no edema Pulm: Nonlabored respirations on room air, clear bilaterally ABD: soft, nontender, nondistended Integumentary: Dressing in place Neuro: Normal speech, normal affect [address] Problem List: iron deficiency Anemia, acute on chronic with blood loss component Tachycardia secondary to above perirectal abscess with fasciitis s/p I&D (02/04) UTI, Enterococcus Faecalis gestational diabetes Hypocalcemia iron deficiency Anemia, acute on chronic with blood loss component Tachycardia secondary to above tachycardia secondary to anemia patient's hgb was 6.6 and 7.2 a few days ago Patients blood noted to be positive for antibodies - delaying transfusion (+warm auto-antibody) (02/09) hgb down to 5.3. HR up to 130s-140s, up to 180s with movement, +dizzy, +cold Transferred to ICU (02/09) for emergent transfusion s/p 1 uPRBC (02/09) - tolerated without issues; least incompatible blood used moderate iron deficiency; started iv iron went to OR again for washout on 02/11 evening; has had some slight oozing of blood from wound/stool (02/13) hgb 7 -> 4.7. HR in 120-130s at rest overnight / today; +feels palpitations 4.7 sample seems to be hemolyzed, recheck: 6.1 1 uPRBC ordered (02/13) GI consulted (02/10) Received 4 bags of IV iron (250mg) this hospitalization (02/10-02/13) Given albumin (02/09) Discussed over phone with heme/onc, who reviewed labs remotely Recommend goal hgb > 6.0 acute blood loss anemia on chronic anemia workup sent off for hemolytic cause - workup so far negative for hemolysis LDH normal, retic% elevated no evidence of hemolysis perirectal abscess with fasciitis s/p I&D (02/04) Wound cx (02/04): Enterobacter Cloacae antibiotics and pain medication per general surgery for her jamal-rectal abscess Previously given clinda / zosyn / vanc (02/05-02/07) completed 1 week of Ceftazidime (02/07-02/12) drainage darker in JODIE drain (02/10) - Updated General surgery taken back to the OR (02/11) for reexamination / reapproximation of surgical wound with Dr. Ro UTI, Enterococcus Faecalis Urine cx (02/04): Enterococcus Faecalis continue augmentin (02/09-) Code: Full Dispo: Home, 2-3 days; per surgery monitor for further bleeding, hgb goal > 6 will need f/u with heme/onc and GI
[2023-02-13 08:35] LABS: Hematocrit 18.6 % (36.0-45.0)
[2023-02-13] MEDS: AMOX/K CLAV 875 MG TAB PO SCH ×2 (08:43→22:17)
[2023-02-13 08:49] LABS: Magnesium 1.7 mg/dL (1.6-2.4); Potassium 3.6 mEq/L (3.5-5.1)
[2023-02-13] MEDS: SOD FERRIC GLUC COMPLX/SUCROSE 250 MG in NA CHLORIDE 0.9% 250 ML IV SCH (09:09)
[2023-02-14 04:23] LABS: Absolute Lymphocytes (CBC) 1.7 K/uL (0.7-4.9); Hematocrit 22.6 % (36.0-45.0); Lymphocytes % 17.2 % (15.3-44.8); MCV 80.9 fL (80-100); MPV 6.4 fL (7.6-11.3); Platelets 264 thou/uL (152-406); RBC Red Blood Cell Count 2.79 M/uL (3.86-4.86)
[2023-02-14 04:48] LABS: Bilirubin Total 0.3 mg/dL (0.2-1.0); C-Reactive Protein 31.4 mg/L (<3.00); Magnesium 1.4 mg/dL (1.6-2.4); Potassium 3.5 mEq/L (3.5-5.1); Protein, Total 4.8 g/dL (6.4-8.2)
[2023-02-14] MEDS ORDERED: POTASSIUM CL SA 10 MEQ TAB PO ONE ×2 (06:26→09:00)
[2023-02-14] MEDS: HYDROCODONE/APAP 10/325 TAB PO PRN ×3 (06:28→21:24)
[2023-02-14] MEDS ORDERED: ALBUMIN HUM 5% 500 ML IV SCH (07:00)
[2023-02-14] MEDS ORDERED: ALBUMIN HUMAN 25% 100 ML IV ONE (07:30)
[2023-02-14 07:49] LABS: Hematocrit 18.6 % (36.0-45.0)
[2023-02-14 07:50] LABS: RBC Red Blood Cell Count 2.34 M/uL (3.86-4.86)
[2023-02-14] MEDS ORDERED: Magnesium Sulfate 2gm IVPB 2 G/50 ML BAG IV ONE (08:00)
--- NOTE | 2023-02-14 08:59 | P.PN ---
Date of Service: 02/14/23 Subjective: Doing okay. rectal pain / pressure ~same. not worsening ambulating without issues around the nursing station. Denies dizziness / lightheadedness given 1 uPRBC overnight. tolerated without issues HR improved slightly no new / worsening problems afebrile ROS: 10 point ROS as noted above, otherwise negative Physical Exam: GEN: Alert, oriented, NAD HEENT: Normal conjunctiva, sclera anicteric, CV: Sinus tachycardia, no edema Pulm: Nonlabored respirations on room air, clear bilaterally ABD: soft, nontender, nondistended Integumentary: Dressing in place [address] Problem List: iron deficiency Anemia, acute on chronic with blood loss component Tachycardia secondary to above perirectal abscess with fasciitis s/p I&D (02/04) UTI, Enterococcus Faecalis gestational diabetes Hypocalcemia iron deficiency Anemia, acute on chronic with blood loss component Tachycardia secondary to above tachycardia secondary to anemia / suspect patient's hgb was 6.6 and 7.2 a few days ago Patients blood noted to be positive for antibodies - delaying transfusion (+warm auto-antibody) (02/09) hgb down to 5.3. HR up to 130s-140s, up to 180s with movement, +dizzy, +cold Transferred to ICU (02/09) for emergent transfusion s/p 1 uPRBC (02/09) - tolerated without issues; least incompatible blood used moderate iron deficiency; Received 4 bags of IV iron (250mg) this hospitalization (02/10-02/13) went to OR again for washout on 02/11 evening; has had some slight oozing of blood from wound/stool (02/13) hgb 7 -> 4.7. HR in 120-130s at rest overnight / today; +feels palpitations 4.7 sample seems to be hemolyzed, recheck: 6.1 s/p 1 uPRBC (02/14) - tolerated without issues; least incompatible blood used; hgb 6.1 > 7.6 Total transfusions this hospitalization: 2 (02/09 & 02/14) GI consulted (02/10) - outpatient f/u for scope Given albumin again(02/14) Discussed over phone with heme/onc, who reviewed labs remotely Recommend goal hgb > 6.0. ok for transfusion on floor acute blood loss anemia on chronic anemia workup sent off for hemolytic cause - workup so far negative for hemolysis LDH normal, retic% elevated no evidence of hemolysis perirectal abscess with fasciitis s/p I&D (02/04) Wound cx (02/04): Enterobacter Cloacae antibiotics and pain medication per general surgery for her jamal-rectal abscess Previously given clinda / zosyn / vanc (02/05-02/07) completed 1 week of Ceftazidime (02/07-02/12) drainage darker in JODIE drain (02/10) - Updated General surgery taken back to the OR (02/11) for reexamination / reapproximation of surgical wound with Dr. Ro UTI, Enterococcus Faecalis Urine cx (02/04): Enterococcus Faecalis completed 5 days of augmentin (02/09-02/13) also received above abx prior to augmentin to cover perirectal abscess Code: Full Dispo: Home, ~1-2 days; per surgery monitor for further bleeding, hgb goal > 6 will need f/u with heme/onc and GI
[2023-02-14] MEDS ORDERED: NA CHLORIDE 0.9% 500 ML IV ONE (12:45)
[2023-02-15] MEDS: HYDROCODONE/APAP 10/325 TAB PO PRN ×5 (02:11→23:45)
[2023-02-15 05:11] LABS: Absolute Lymphocytes (CBC) 1.4 K/uL (0.7-4.9); Hematocrit 22.2 % (36.0-45.0); Lymphocytes % 17.3 % (15.3-44.8); MCV 81.1 fL (80-100); MPV 6.3 fL (7.6-11.3); Platelets 280 thou/uL (152-406); RBC Red Blood Cell Count 2.74 M/uL (3.86-4.86)
[2023-02-15 05:29] LABS: Bilirubin Total 0.3 mg/dL (0.2-1.0); C-Reactive Protein 34.5 mg/L (<3.00); Magnesium 1.5 mg/dL (1.6-2.4); Phosphorus 2.7 mg/dL (2.5-4.9); Potassium 3.8 mEq/L (3.5-5.1); Protein, Total 5.1 g/dL (6.4-8.2)
[2023-02-15] MEDS ORDERED: Magnesium Sulfate 2gm IVPB 2 G/50 ML BAG IV ONE (06:00)
[2023-02-15] MEDS ORDERED: POTASSIUM CL SA 10 MEQ TAB PO ONE (09:00)
--- NOTE | 2023-02-15 15:42 | P.PN ---
Subjective Date of Service: 02/15/23 Chief Complaint: s/p perirectal abscess I&D, tachycardia Patient denies any new complaint. She has been tolerating diet. She has been tachycardic. Physical Examination - Vital Signs Temperature: 97.4 F Blood Pressure: 118/71 Pulse: 111 Respirations: 16 Pulse Ox (%): 97 Assessment And Plan - Plan Physical Exam: GEN: Alert, oriented, NAD CV: Tachycardic, no edema Pulm: clear bilaterally, adequate breath sounds bilaterally. ABD: soft, nontender, nondistended Problem List: iron deficiency Anemia, acute on chronic with blood loss component Tachycardia secondary to above perirectal abscess with fasciitis s/p I&D (02/04) UTI, Enterococcus Faecalis gestational diabetes Hypocalcemia iron deficiency Anemia, acute on chronic with blood loss component Tachycardia secondary to above Patient with persistent tachycardia. patient's hgb was 6.6 and 7.2 a few days ago Patients blood noted to be positive for antibodies - delaying transfusion (+warm auto-antibody) (02/09) hgb down to 5.3. HR up to 130s-140s, up to 180s with movement, +dizzy, +cold Transferred to ICU (02/09) for emergent transfusion Status post 2 unit PRBC transfusion. Hemoglobin stable at 7.5 moderate iron deficiency; Received 4 bags of IV iron (250mg) this hospitalization (02/10-02/13) GI consulted (02/10) -recommend outpatient f/u for scope Given albumin again(02/14) Hemolysis is unlikely cause of anemia LDH normal, retic% elevated no evidence of hemolysis. Obtain echocardiogram to evaluate LV function and heart valves perirectal abscess with fasciitis s/p I&D (02/04) Wound cx (02/04): Enterobacter Cloacae antibiotics and pain medication per general surgery for her jamal-rectal abscess Previously given clinda / zosyn / vanc (02/05-02/07) completed 1 week of Ceftazidime (02/07-02/12) Patient taken back to the OR (02/11) for reexamination / reapproximation of surgical wound with Dr. Ro UTI, Enterococcus Faecalis Urine cx (02/04): Enterococcus Faecalis completed 5 days of augmentin (02/09-02/13) also received above abx prior to augmentin to cover perirectal abscess Code: Full Dispo: Home, ~1-2 days; per surgery monitor for further bleeding, hgb goal > 6 will need f/u with heme/onc and GI
[2023-02-16 04:55] LABS: Hematocrit 20.2 % (36.0-45.0)
[2023-02-16] MEDS: HYDROCODONE/APAP 10/325 TAB PO PRN ×4 (04:56→22:23)
[2023-02-16 05:07] LABS: Potassium 3.5 mEq/L (3.5-5.1)
[2023-02-16] MEDS ORDERED: POTASSIUM CL SA 10 MEQ TAB PO ONE (09:00)
[2023-02-16] MEDS: ACETAMINOPHEN 500 MG TAB PO PRN (12:05)
--- NOTE | 2023-02-16 12:11 | P.PN ---
Subjective Date of Service: 02/16/23 Chief Complaint: s/p perirectal abscess I&D, tachycardia Patient denies any new complaint. No issues overnight She has remained tachycardic from 110s to 120s. Physical Examination - Vital Signs Temperature: 97.2 F Blood Pressure: 129/62 Pulse: 128 Respirations: 16 Pulse Ox (%): 97 Assessment And Plan - Plan Physical Exam: GEN: Alert, oriented, NAD CV: Tachycardic, no edema Pulm: clear bilaterally, adequate breath sounds bilaterally. ABD: soft, nontender, nondistended Problem List: iron deficiency Anemia, acute on chronic with blood loss component Tachycardia secondary to above perirectal abscess with fasciitis s/p I&D (02/04) UTI, Enterococcus Faecalis gestational diabetes Hypocalcemia iron deficiency Anemia, acute on chronic with blood loss component Tachycardia secondary to above Patient with persistent tachycardia. Hemoglobin has been stable around 7 Patients blood noted to be positive for antibodies - delaying transfusion (+warm auto-antibody) (02/09) hgb down to 5.3. HR up to 130s-140s, up to 180s with movement, +dizzy, +cold Transferred to ICU (02/09) for emergent transfusion Status post 2 unit PRBC transfusion. Hemoglobin stable at 7.5 moderate iron deficiency; Received 4 bags of IV iron (250mg) this hospitalization (02/10-02/13) GI consulted (02/10) -recommend outpatient f/u for scope Status post IV albumin infusion Hemolysis is unlikely cause of anemia LDH normal, retic% elevated no evidence of hemolysis. Echocardiogram result is pending. Follow-up with hematology oncology as outpatient perirectal abscess with fasciitis s/p I&D (02/04) Wound cx (02/04): Enterobacter Cloacae antibiotics and pain medication per general surgery for her jamal-rectal abscess Previously given clinda / zosyn / vanc (02/05-02/07) completed 1 week of Ceftazidime (02/07-02/12) Patient taken back to the OR (02/11) for reexamination / reapproximation of surgical wound with Dr. Ro UTI, Enterococcus Faecalis Urine cx (02/04): Enterococcus Faecalis completed 5 days of augmentin (02/09-02/13) also received above abx prior to augmentin to cover perirectal abscess Code: Full Dispo: Home, ~1-2 days; per surgery
[2023-02-16 13:41] LABS: Specific Gravity 1.008 (1.005-1.030); Urine Bacteria None Seen /HPF (<20); Urine Bilirubin NEGATIVE (Negative); Urine Blood Negative (Negative); Urine Clarity Clear (Clear); Urine Color Colorless (Yellow); Urine Glucose NEGATIVE (Negative); Urine Mucus Slight /HPF (None Seen); Urine Protein NEGATIVE (Negative); Urine RBC <5 /HPF (None Seen); Urine Urobilinogen Normal (Normal)
--- NOTE | 2023-02-16 17:09 | P.PN ---
Date of Service: 02/16/23 S: Patient tearful, in good mood today. No specific complaints. O: Vital signs are stable, still occasional tachycardia normal bowel movements she states A: Surgical wounds are clean, no evidence of any building abscess P: Patient is stable from a surgical point of view. She may be discharged when medically stable. Reminded patient that she needs to get a colonoscopy once she is discharged. She will follow-up with me in my office or the wound center.
--- NOTE | 2023-02-16 17:59 | P.PN ---
Date of Service: 02/16/23 Echocardiogram is reviewed and reported normal EF but hyperdynamic. He has been persistently tachycardic. Plan to transfuse 1 more unit PRBC symptomatic anemia Obtain CTA thorax to rule out pulm embolism Low-dose metoprolol for tachycardia Continue cardiac monitoring.
[2023-02-16] MEDS ORDERED: NA CHLORIDE 0.9% 250 ML IV SCH (18:00)
[2023-02-16] MEDS ORDERED: ONDANSETRON 4 MG/2 ML VIAL IV ONE (18:16)
[2023-02-16] MEDS: METOPROLOL TAR 25 MG TAB PO SCH (18:19)
--- NOTE | 2023-02-16 18:57 | RAD REPORT ---
EXAM DESCRIPTION: CT - Chest For Pe Angio - 02/16/2023 6:40 pm CLINICAL HISTORY: Chest pain COMPARISON: None. TECHNIQUE: Dynamically enhanced axial 3 mm thick images of the chest were obtained during administra tion of 100 mL Isovue 370 IV contrast. Coronal and oblique reconstruction images were generated and r eviewed. Exam utilizes a protocol for optimal evaluation of pulmonary arterial tree. Maximum intensity projections 3D imaging was utilized All CT scans are performed using dose optimization technique as appropriate and may include automated exposure control or mA/KV adjustment according to patient size. FINDINGS: Right lower lobe pulmonary emboli. No thrombus within the main pulmonary, right main, left main and left pulmonary arteries. A thoracic aortic aneurysm is not noted. Small pleural effusions. A pericardial effusion is not seen. A lung consolidation is not present. IMPRESSION: Right lower lobe pulmonary emboli Dr Perez notified 6:52 p.m. February 16, 2023
[2023-02-16 20:13] LABS: Protime INR 1.19
[2023-02-16 20:31] LABS: MPV 6.6 fL (7.6-11.3); Platelets 373 thou/uL (152-406)
[2023-02-16] MEDS: HEPARIN/D5W 25,000 UNIT/500 ML BAG IV SCH (21:18)
[2023-02-16 23:23] VITALS: O2SAT 99
[2023-02-17] MEDS ORDERED: ALTEPLASE 2 MG/VIAL IV ONE (01:17)
[2023-02-17 02:20] LABS: Hematocrit 21.4 % (36.0-45.0)
[2023-02-17 02:26] LABS: Potassium 3.8 mEq/L (3.5-5.1)
[2023-02-17] MEDS: METOPROLOL TAR 25 MG TAB PO SCH ×2 (05:03→18:00)
[2023-02-17] MEDS: HYDROCODONE/APAP 10/325 TAB PO PRN ×3 (05:03→21:21)
--- NOTE | 2023-02-17 06:50 | ECHO ---
HEIGHT: 5 ft 3 in WEIGHT: 153 lb 0 oz DATE OF STUDY: 02/16/[address]: Brian Kee MD 2-DIMENSIONAL: YES M.MODE: YES DOPPLER: YES COLOR FLOW: YES TDS: PORTABLE: YES DEFINITY: BUBBLE STUDY: DIAGNOSIS: SUPRAVENTRICULAR TACHYCARDIA CARDIAC HISTORY: CATHERIZATION: NO SURGERY: NO PROSTHETIC VALVE: NO PACEMAKER: NO MEASUREMENTS (cm) DIASTOLIC (NORMALS) SYSTOLIC (NORMALS) IVSd 0.9 (0.6-1.2) LA Diam 1.8 (1.9-4.0) LVEF GREATER THAN 60% LVIDd 3.4 (3.5-5.7) LVIDs 2.5 (2.0-3.5) %FS LVPWd 1.0 (0.6-1.2) Ao Diam 2.1 (2.0-3.7) 2 DIMENSIONAL ASSESSMENT: RIGHT ATRIUM: NORMAL LEFT ATRIUM: NORMAL RIGHT VENTRICLE: NORMAL LEFT VENTRICLE: NORMAL TRICUSPID VALVE: NORMAL MITRAL VALVE: NORMAL PULMONIC VALVE: NORMAL AORTIC VALVE: NORMAL PERICARDIAL EFFUSION: NONE AORTIC ROOT: NORMAL LEFT VENTRICULAR WALL MOTION: NORMAL DOPPLER/COLOR FLOW: NORMAL COMMENTS: 1. NORMAL LEFT VENTRICULAR EJECTION FRACTION GREATER THAN 60% (HYPERDYNAMIC) 2. NORMAL WALL MOTION 3. NORMAL DIASTOLIC FUNCTION TECHNOLOGIST: SHIRLEY FAJARDO
[2023-02-17] MEDS ORDERED: POTASSIUM CL SA 10 MEQ TAB PO ONE (09:00)
[2023-02-17] MEDS ORDERED: NA CHLORIDE 0.9% 100 ML ONE (10:05)
[2023-02-17 15:44] LABS: Hematocrit 26.4 % (36.0-45.0)
[2023-02-17] MEDS ORDERED: Magnesium Sulfate 2gm IVPB 2 G/50 ML BAG IV ONE (15:58)
[2023-02-17] MEDS ORDERED: CALCIUM GLUCONATE 1 GM IVPB 2 GM/100 ML BAG IV ONE (16:00)
[2023-02-17] MEDS: HEPARIN/D5W 25,000 UNIT/500 ML BAG IV SCH (16:40)
--- NOTE | 2023-02-17 18:37 | P.PN ---
Subjective Date of Service: 02/17/23 Chief Complaint: s/p perirectal abscess I&D, tachycardia Patient denies any new complaint. No issues overnight media monitor showed 6 runs of V. tach followed by PVCs and bigeminys. Physical Examination - Vital Signs Temperature: 97.8 F Blood Pressure: 136/75 Pulse: 126 Respirations: 16 Pulse Ox (%): 98 Assessment And Plan - Plan Physical Exam: GEN: Alert, oriented, NAD CV: Tachycardic, no edema Pulm: clear bilaterally, adequate breath sounds bilaterally. ABD: soft, nontender, nondistended Problem List: iron deficiency Anemia, acute on chronic with blood loss component Tachycardia secondary to above perirectal abscess with fasciitis s/p I&D (02/04) UTI, Enterococcus Faecalis gestational diabetes Hypocalcemia iron deficiency Anemia, acute on chronic with blood loss component Tachycardia secondary to above Nonsustained VT Patient with persistent tachycardia. Hemoglobin has been stable around 7 Patients blood noted to be positive for antibodies - delaying transfusion (+warm auto-antibody) (02/09) hgb down to 5.3. HR up to 130s-140s, up to 180s with movement, +dizzy, +cold Transferred to ICU (02/09) for emergent transfusion Status post 2 unit PRBC transfusion. Hemoglobin stable at 7.5 moderate iron deficiency; Received 4 bags of IV iron (250mg) this hospitalization (02/10-02/13) GI consulted (02/10) -recommend outpatient f/u for scope Status post IV albumin infusion Hemolysis is unlikely cause of anemia LDH normal, retic% elevated no evidence of hemolysis. Echocardiogram showed hyperdynamic heart Case discussed with hematology oncology Dr. Mcleod who agreed with 1 more PRBC transfusion hemoglobin greater than 8. Optimize magnesium and calcium. IV magnesium and IV calcium ordered. perirectal abscess with fasciitis s/p I&D (02/04) Wound cx (02/04): Enterobacter Cloacae antibiotics and pain medication per general surgery for her jamal-rectal abscess Previously given clinda / zosyn / vanc (02/05-02/07) completed 1 week of Ceftazidime (02/07-02/12) Patient taken back to the OR (02/11) for reexamination / reapproximation of surgical wound with Dr. Ro Stable for discharge per Dr. Ro. UTI, Enterococcus Faecalis Urine cx (02/04): Enterococcus Faecalis completed 5 days of augmentin (02/09-02/13) also received above abx prior to augmentin to cover perirectal abscess Code: Full Dispo: Home.
[2023-02-17] MEDS ORDERED: APIXABAN 5 MG TABLET PO SCH (21:00)
[2023-02-18] MEDS: HYDROCODONE/APAP 10/325 TAB PO PRN ×2 (05:12→14:58)
[2023-02-18] MEDS: METOPROLOL TAR 25 MG TAB PO SCH (05:13)
[2023-02-18 06:11] LABS: Hematocrit 27.2 % (36.0-45.0)
[2023-02-18 13:35] VITALS: TEMP 97.8
--- NOTE | 2023-02-18 16:40 | P.DS ---
Admission Date: 02/04/23 Discharge Date: 02/18/23 Disposition: ROUTINE DISCHARGE Discharge Condition: FAIR Reason for Admission: s/p perirectal abscess I&D, tachycardia Brief History of Present Illness: 27-year-old woman presented to the ER with nausea vomiting and diarrhea for 2 weeks. She reported feeling poorly, along with rectal pain for about 3 days. Patient was tachycardic in the ED and had severe leukocytosis but no fever and therefore meets criteria for sepsis. 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 Patient was admitted to general surgery Dr. Ro service for further management. Hospital Course: Diagnosis iron deficiency Anemia, acute on chronic with blood loss component Tachycardia secondary to above perirectal abscess with fasciitis s/p I&D (02/04) UTI, Enterococcus Faecalis gestational diabetes Hypocalcemia Iron deficiency Anemia, acute on chronic with blood loss component Tachycardia secondary to above Nonsustained VT Patient developed anemia with hemoglobin down to 5.3 along with tachycardia Patients blood noted to be positive for antibodies. Status post 3 unit PRBC transfusion. Hemoglobin level improved to 9 Her tachycardia improved with blood transfusion. Noted moderate iron deficiency; She received IV iron. GI consulted who recommended outpatient f/u for scope Status post IV albumin infusion Hemolysis is unlikely cause of anemia LDH normal, UA did not indicate hemolysis Echocardiogram showed hyperdynamic heart. She had 1 episode 6 runs of VT followed by a brief period with PVCs and bigeminys. Optimized magnesium and calcium with IV replacement. Patient placed on low-dose metoprolol She was seen by cardiology who titrated metoprolol to 25 mg twice a day. Pulmonary emboli CTA thorax demonstrated right lower lobe pulm emboli which could be contributing to the tachycardia Patient initially treated with heparin drip. Hemoglobin was stable with heparin drip with no evidence of active bleed. Heparin drip transitioned to Eliquis. Perirectal abscess with fasciitis s/p I&D (02/04) I&D performed by Dr. Ro. She was taken back to the OR (02/11) for reexamination / reapproximation of surgical wound with Dr. Ro Wound cx (02/04): Enterobacter Cloacae She was previously treated with clinda / zosyn / vanc followed by 1 week of Ceftazidime. IV antibiotics later transitioned to oral Augmentin Stable for discharge per Dr. Jayjay. UTI, Enterococcus Faecalis Urine cx (02/04): Enterococcus Faecalis Patient completed 5 days of augmentin (02/09-02/13) Vital Signs/Physical Exam: Temp Pulse Resp BP Pulse Ox 97.8 F 126 H 18 136/75 95 02/18/23 13:32 02/18/23 13:32 02/18/23 14:58 02/18/23 13:32 02/18/23 14:58 General: Alert, In no apparent distress, Oriented x3 HEENT: Mucous membr. moist/pink Neck: Supple, JVD not distended Respiratory: Clear to auscultation bilaterally, Normal air movement Cardiovascular: No edema, Regular rate/rhythm, Normal S1 S2 Gastrointestinal: Normal bowel sounds, Soft and benign, Non-distended, No tenderness Musculoskeletal: No swelling Integumentary: No rashes, No cyanosis Neurological: Normal strength at 5/5 x4 extr Laboratory Data at Discharge: WBC 8.30 thou/uL (4.3-10.9) 02/15/23 04:40 Hgb 9.4 g/dL (12.0-15.0) L 02/18/23 05:50 Hct 27.2 % (36.0-45.0) L 02/18/23 05:50 Plt Count 373 thou/uL (152-406) 02/16/23 11:13 PT 13.0 SECONDS (9.5-12.5) H 02/16/23 19:55 INR 1.19 02/16/23 19:55 APTT 69.8 SECONDS (24.3-36.9) H 02/18/23 05:50 Sodium 146 mEq/L (136-145) H 02/18/23 05:50 Potassium 4.0 mEq/L (3.5-5.1) 02/18/23 05:50 BUN 4 mg/dL (7-18) L 02/18/23 05:50 Creatinine 0.75 mg/dL (0.55-1.02) 02/18/23 05:50 Glucose 99 mg/dL (74-106) 02/18/23 05:50 Phosphorus 2.7 mg/dL (2.5-4.9) 02/15/23 04:40 Magnesium 1.5 mg/dL (1.6-2.4) L 02/18/23 05:50 Total Bilirubin 0.3 mg/dL (0.2-1.0) 02/15/23 04:40 AST 13 U/L (15-37) L 02/15/23 04:40 ALT 11 U/L (13-56) L 02/15/23 04:40 Alkaline Phosphatase 98 U/L (45-117) 02/15/23 04:40 Lipase 7 U/L (13-75) L 02/05/23 06:43 Home Medications: Apixaban [Eliquis] 5 mg PO BID #74 tab 02/18/23 Hydrocodone 10/APAP 325 [[place] 10/325*] 1 tab PO Q4H PRN #20 tab 02/18/23 Magnesium Oxide 400 mg PO BID #60 tab 02/18/23 Metoprolol Tartrate [Lopressor*] 25 mg PO BID 6AM 6PM #60 tab 02/18/23 New Medications: Apixaban [Eliquis] 5 mg PO BID #74 tab Metoprolol Tartrate [Lopressor*] 25 mg PO BID 6AM 6PM #60 tab Magnesium Oxide 400 mg PO BID #60 tab Hydrocodone 10/APAP 325 [[place] 10/325*] 1 tab PO Q4H PRN #20 tab PRN Reason: Pain Scale 8-10 (Severe) Physician Discharge Instructions: You can shower or sitz bath after bowel movement. Wound dressing change daily. Diet: AHA Activity: Ad josefa Followup: Reed Ro MD [ACTIVE - CAN ADMIT] - 1-2 Weeks (Please call office on 02/23/2023 for an appointment.) NONE,NONE [Primary Care Provider] - 1 Week Time spent managing pt's care (in minutes): 38
[2023-02-18 17:25] VITALS: BP 110/52
[2023-02-18] MEDS: HEPARIN/D5W 25,000 UNIT/500 ML BAG IV SCH (17:25)
[2023-02-18] MEDS ORDERED: Magnesium Sulfate 2gm IVPB 2 G/50 ML BAG IV ONE (17:45)
[2023-02-18] MEDS ORDERED: METOPROLOL TAR 25 MG TAB PO SCH (18:00)
--- NOTE | 2023-02-18 18:16 | CON ---
Date of Consultation: 02/18/2023 Reason For Consultation: Short run of ventricular tachycardia. History Of Present Illness: This is a young female, 27 years old, has no significant medical history , presented with perirectal abscess and is being treated by surgery and with IV antibiotics. She dagmar arently had a short run of ventricular tachycardia on the telemetry, hence I was consulted and the pa addy is asymptomatic with it. Past Medical History: None. Medications: Refer reconciliation sheet for detailed list. Allergies: NO KNOWN DRUG ALLERGIES. Family History: No premature coronary artery disease or cancer. Social History: She does not smoke or drink. Does not use any drugs. Review of Systems: All systems reviewed and they were negative except as mentioned in the HPI. Physical Examination: Vital Signs: Reviewed. Head and Neck: Pupils are equal, reactive to light. Intact eye movements. No JVD. No cervical lym phadenopathy. Neck is supple. Thyroid is not enlarged. Lungs: Clear to auscultation bilaterally. No rhonchi, rales, or crackles. No accessory muscle use. Heart: Regular rate and rhythm. No extra sounds. Abdomen: Soft, nontender. Bowel sounds positive. No organomegaly. No masses or hernia. No rigidi ty or rebound. Extremities: No edema, clubbing, or cyanosis. Intact pulses. Skin: No rash. Neurologic: Alert, awake, oriented x3. No acute focal deficits appreciated. Lymph nodes: No cervical or axillary lymphadenopathy. Investigations: Labs reviewed. Assessment/recommendation: Ventricular tachycardia, short run, but likely due to electrolyte abnorma lities. Magnesium is very low. Please replace magnesium to get the level above 2, make sure potassi um is above 4. Echo is entirely normal including diastolic function. This is likely due to electrol yte abnormalities, which should correct with magnesium replacement. Also recommend to increase the m etoprolol 25 mg twice a day and titrated up for a heart rate to be less than 100. Thank you for the consult. Cardiology will sign off. SR/MODL Voice ID: [id number] Report ID: [id number]
== END 2023-02-18 20:05 | disposition home or self-care (01) | DRG 854 ==
LOC: ER 12:50 → 2ND 20:28 → 3RD-ICU 02-09 16:31 → 2ND 02-12 16:36
PROVIDERS: ADMIT Surgery; ATTEND Surgery
PROC: 0JBB0ZZ Excision of Perineum Subcutaneous Tissue and Fascia, Open Approach (ICD-10-PCS; principal; 2023-02-04 21:00)
PROC: 0JDB0ZZ Extraction of Perineum Subcutaneous Tissue and Fascia, Open Approach (ICD-10-PCS; 2023-02-07)
PROC: 02HV33Z Insertion of Infusion Device into Superior Vena Cava, Percutaneous Approach (ICD-10-PCS; 2023-02-07)
PROC: 30233N1 Transfusion of Nonautologous Red Blood Cells into Peripheral Vein, Percutaneous Approach (ICD-10-PCS; 2023-02-09)
DX: A41.81 Sepsis due to Enterococcus (principal); D62 Acute posthemorrhagic anemia; K61.2 Anorectal abscess; N39.0 Urinary tract infection, site not specified; I47.20 Ventricular tachycardia, unspecified; M72.9 Fibroblastic disorder, unspecified; E83.51 Hypocalcemia; I49.3 Ventricular premature depolarization; D50.9 Iron deficiency anemia, unspecified; Z79.01 Long term (current) use of anticoagulants; Z87.891 Personal history of nicotine dependence; Z28.310 Unvaccinated for COVID-19
CPT/HCPCS: 36415; 36430; 71045; 71275; 74176; 80048; 80053; 80076; 80202; 81001; 81025; 82607; 82728; 83540; 83605; 83615; 83690; 83735; 83880; 84100; 84132; 84466; 85014; 85018; 85025; 85027; 85044; 85049; 85610; 85730; 86140; 86850; 86870; 86900; 86901; 86920; 86922; 87045; 87046; 87070; 87075; 87077; 87086; 87088; 87186; 87205; 93005; 93306; 94010; 96365; 96366; 96367; 96368; 96375; 99285; J0612; J0696; J0713; J1170; J2001; J2250; J2405; J2543; J2704; J2916; J2997; J3010; J3475; J3480; J7030; J7040; J7050; J7120; J7799; P9016; P9045; P9047; Q9967